=== PATIENT | female | born 1970 | race Caucasian/White ===

== ENCOUNTER 2025-03-19 11:28 | Outpatient (AMB) | payer OTHER, SELFPAY ==
--- NOTE | 2025-03-19 11:30 | MHC.PC.OV ---
Vital Signs 03/19/25 11:33 Height 5 ft 6 in Weight 171 lb 4 oz BMI 27.6 BP 117/70 Blood Pressure Location Lt brachial Position Sitting Respiration 16 Pulse 98 Pulse Source Pulse Oximeter Temp 98.3 F Temp Source Oral Pulse Oximetry (%) 98 Oxygen Delivery Method Room Air Intake Visit Reasons: establish care Health Information Administrator Required: No Accompanied by: Self / Same As Patient Allergies clarithromycin (Biaxin) Allergy (Unknown, Verified 03/19/25 11:44) Hives Medication List - Last Reconciled 03/20/25 by CARL Arita famotidine 20 mg PO BID fluoxetine (Prozac) 10 mg PO DAILY lorazepam 1 mg PO DAILY PRN Tobacco use date assessed: 03/19/25 Dental Screening Dental Screen Date: 03/19/25 Did you have a dental visit in the last 12 months?: Yes Did you have a dental problem in the last 6 months where you did not have access to dental care?: No Was dental information given to patient?: Patient has dentist HPI establish care HPI Details Previous PCP: [facility], Dr. Héctor Lo, Dr. Mathis PCP Last visit:06/2024 Last PE:same Specialist:Reports seeing a psychiatrist for 20 years now. She would like to see if there are better options for her anxiety other than the Lorazepam due to her concern about mental decline. She would like to speak to a therapist has well due to new stressful situation as it relates to her family OBGYN: Will need a referral. Reports having and pap smear last year in [place] Mammogram: 06/2024 Past medical history: GORAN, Major Depression, hypothyroidism, right thumb de quervain's tenosynovitis-will refer the patient to the hand specialist Medications: Family HX: Hypothyroidism-mother, high blood pressure mother, father cancer at 55 years old bladder cancer. Old brother dx with prostate cancer, he is smoker-he is on hormonal tx, alcoholism in other brother and sister Problem: The patient is a 54-year-old female presenting with multiple chronic conditions including anxiety, depression, and hypothyroidism, as well as for medication management and preventative care. The patient reports a history of generalized anxiety disorder and major depressive disorder, which she describes as waxing and waning. She is currently on Prozac 10 mg daily and lorazepam 1 mg as needed, approximately every other day. She expresses concern about the long-term use of lorazepam and its potential impact on her cognitive function. The patient has a history of hypothyroidism, with previous TSH levels fluctuating between 2 and 6. She has not been taking her prescribed levothyroxine and is unsure of her current thyroid status. Her mother also has hypothyroidism, suggesting a possible genetic component. The patient reports symptoms of menopause, which began at age 37, and has been advised to take antidepressants to manage symptoms. She has a fear of taking medications and is concerned about their effects on her thyroid and overall health. 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 The condition recently flared up, causing significant discomfort and functional limitations. The patient also reports a history of hypoglycemia, with consistently low blood sugar levels. She is sensitive to sugar intake, which exacerbates her symptoms. She has been diagnosed with cervical stenosis on the left side, which contributes to her chronic neck pain. She experiences constant pain in her neck and lower back, which has been managed with chiropractic and acupuncture treatments. The patient has a family history of prostate cancer in her brother and bladder cancer in her father. 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 [facility] Medical History (Updated 03/20/25 @ 00:48 by CARL Arita) Valentin neuroma De Quervain's tenosynovitis Depression Lower back pain GOARN (generalized anxiety disorder) Family History (Updated 03/20/25 @ 00:51 by CARL Arita) Brother Family hx of prostate cancer Alcoholism Mother HTN (hypertension) Hypothyroidism Father Bladder cancer Brother Alcoholism Sister Alcoholism Social History Housing: [facility] Patient Tobacco Use Status: Never used Tobacco Current occupational status: retired Questionnaire PHQ-9 Over the last 2 weeks, how often have you been bothered by any of the following problems? 1. Little interest or pleasure in doing things: several days 2. Feeling down, depressed, or hopeless: several days 3. Trouble falling or staying asleep, or sleeping too much: more than half the days 4. Feeling tired or having little energy: more than half the days 5. Poor appetite or overeating: nearly every day 6. Feeling bad about yourself - or that you are a failure or have let yourself or your family down: more than half the days 7. Trouble concentrating on things, such as reading the newspaper or watching television: nearly every day 8. Moving or speaking so slowly that other people could have noticed. Or the opposite - being so fidgety or restless that you have been moving around a lot more than usual: not at all 9. Thoughts that you would be better off or of hurting yourself in some way: not at all Total score: 14 Depression Screening Interpretation: Positive Depression Screening Done: Yes 70506 - PHQ-9 Billing: Yes Source: Developed by Drs. Keagan Jackson, Briseyda Osorio, Vince Richey and colleagues, with an educational amisha from [employer]. Thrive Questionnaire Date Thrive assessed: 03/19/25 I am a: Patient What is your living situation today?: I have a steady place to live Within the past 12 months, did the food you bought not last and you didn't have the money to get more?: Never true Within the past 12 months, did you worry whether your food would run out before you got money to buy more?: Never true Do you have trouble paying for medicines?: I choose not to answer this question Do you have trouble getting transportation to medical appointments?: No Do you have trouble paying your heating and electricity bill?: No Do you have trouble taking care of your child, family member or friend?: No Do you have trouble with day-to-day activities such as bathing, preparing meals, shopping, managing finances, etc.?: No Are you currently unemployed and looking for a job?: No Are you interested in more education?: No Please select the resources that you would like help with: None Currently or been in a relationship where the following occur: No concerns reported THRIVE Score: 0 AUDIT C Alcohol Use Questionnaire (AUDIT-C) 1. How often do you have a drink containing alcohol?: Never Total Score: 0 GORAN-7 AMB Questionnaire GORAN-7 Date GORAN - 7 assessed: 03/19/25 Feeling nervous, anxious, or on edge: 1 = Several days Not being able to stop or control worryin = Several days Worrying too much about different things: 1 = Several days Trouble relaxin = More than half the days Being so restless that it is hard to sit still: 0 = Not at all Becoming easily annoyed or irritable: 1 = Several days Feeling afraid as if something awful might happen: 1 = Several days Total GORAN-7 score (0-4 normal; 5-9 mild; 10-14 moderate; 15-21 severe): 7 Source: Developed by Drs. Keagan Jackson, Briseyda Osorio, Vince Richey and colleagues, with an educational amisha from [employer]. GORAN-7 Assessment Billing GORAN-7 Assessment Tool: GORAN-7 Assessment 77421 Review of Systems Const Details: - Psychiatric: Reports anxiety and depression, with concerns about cognitive effects of medication. - Endocrine: Reports hypothyroidism with fluctuating TSH levels, not currently taking medication. - Musculoskeletal: Reports chronic neck and lower back pain, De Quervain's tenosynovitis, and Valentin's neuroma. - Reproductive: Reports menopausal symptoms since age 37. - Metabolic: Reports hypoglycemia and sensitivity to sugar intake. Denies headache(s) Eyes Denies loss of vision ENT Denies vertigo, Denies dizziness, Denies headache(s), Reports neck pain and Denies sore throat Card Denies chest pain, Denies leg edema and Denies lightheadedness Resp Denies cough, Denies hemoptysis and Denies wheezing GI Denies abdominal pain, Denies melena, Denies constipation, Denies diarrhea and Denies vomiting Denies urinary frequency, Denies dysuria and Denies urinary urgency Musc Reports back pain, Reports arthralgias (right wrist), Denies joint swelling, Reports neck pain, Denies numbness and Denies tingling Skin/Breast Reports other (hx of valentin neuroma) Neuro Denies Abnormal speech present, Denies behavioral changes, Denies vertigo, Denies dizziness, Denies headache(s), Denies loss of vision, Denies memory loss, Denies numbness, Denies tingling and Reports other (concern for cognitive decline) Psych Reports anxiety, Denies behavioral changes, Reports depression, Denies memory loss, Denies panic attacks, Denies homicidal ideation and Denies suicidal ideation James/Lymph Denies easy bleeding and Denies easy bruising Aller/Immun Denies wheezing Physical exam (Primary Care) Vital Signs: Last Vital Signs Temp 98.3 F 03/19/25 11:33 Pulse 98 03/19/25 11:33 Resp 16 03/19/25 11:33 BP 117/70 03/19/25 11:33 Pulse Ox 98 03/19/25 11:33 Oxygen Delivery Method Room Air 03/19/25 11:33 BMI result Body Mass Index 27.6 Tobacco/Smoking Status: Tobacco use Status Tobacco use date assessed 03/19/25 03/19/25 11:37 Patient Tobacco Use Status Never used Tobacco 03/19/25 12:01 PHQ-9: PHQ-9 Score PHQ-9: Total score 14 03/19/25 11:46 Depression Screening Interpretation: Positive Thrive Assessment: Date of Thrive Assessment Date Thrive assessed 03/19/25 03/19/25 11:37 Currently or been in a relationship where the following occur: No concerns reported Const Other: - Vital signs: Oxygen saturation 98%, Pulse 66 bpm - Musculoskeletal: Pain upon palpation in the thumb area, zinging sensation in the first two fingers General: healthy appearing, no acute distress, alert and awake Nutritional Appearance: well nourished Orientation/consciousness: oriented to person, oriented to place and oriented to time HENMT Ears: TM's normal bilaterally General nose exam: Normal nasal mucous membranes and turbinates present Eyes Conjunctivae: conjunctivae normal Sclerae: sclerae normal Pupils: Equal, round and reactive pupils present Neck Neck: Yes no lymphadenopathy and Yes no JVD Thyroid: Thyroid normal Carotids: no bruits Resp Effort & Inspection: normal respiratory effort and not tachypneic Auscultation: no crackles, no rales, no rhonchi and no wheezes Cardio Rate: regular rate Rhythm: regular rhythm Heart sounds: S1 normal heart sound present, S2 normal heart sound present, no murmurs and normal S1 and S2 GI Palpation (GI): Soft to palpation and nontender Auscultation: normal bowel sounds General: Yes no CVA tenderness Back/Spine/Pelvis Back: no CVA tenderness Cervical Spine: Cervical spine tenderness Thoracic/Lumbar Spine: lumbar spinal tenderness Skin General skin exam: no rashes or lesions noted and dry skin Neuro General: oriented to person, oriented to place and oriented to time Cranial nerves: Yes Equal, round and reactive pupils present Speech: No Abnormal speech present Gait exam (Neuro): Normal gait present Motor exam (neuro): no tremor noted Extrem Right upper extremity: full ROM and wrist Details: Phalen's negative; Tinel's positive Left upper extremity: full ROM Right lower extremity: full ROM; no edema Left lower extremity: full ROM; no edema Psych Mental Status: mental status grossly normal Speech and movement: Normal speech and movement present Affect: normal affect Attitude: cooperative Thought process: Normal thought process present Coding Level of Care Code New Pt Level 4 (21458) Diagnoses GORAN (generalized anxiety disorder) F41.1 Depression, unspecified depression type F32.A Depression Type: unspecified Hypothyroidism, unspecified type E03.9 Hypothyroidism type: unspecified Chronic low back pain with sciatica, sciatica laterality unspecified, unspecified back pain laterality M54.40; G89.29 Chronicity: chronic Back pain laterality: unspecified Sciatica presence: with sciatica Sciatica laterality: sciatica laterality unspecified Neck pain M54.2 De Quervain's tenosynovitis M65.4 Additional Codes GORAN-7 Assessment Billing - GORAN-7 Assessment Tool: GORAN-7 Assessment 04062 ([id number]) PHQ-9 - 44974 - PHQ-9 Billing: Yes ([id number]) Time Spent (min) 42 Assessment & Plan Assessment & Plan (1) GORAN (generalized anxiety disorder): Code(s): F41.1 - Generalized anxiety disorder Category: Medical (2) Depression: Code(s): F32.A - Depression, unspecified Category: Medical Qualifiers: Depression Type: unspecified Qualified Code(s): F32.A - Depression, unspecified (3) Hypothyroidism: Code(s): E03.9 - Hypothyroidism, unspecified Category: Medical Qualifiers: Hypothyroidism type: unspecified Qualified Code(s): E03.9 - Hypothyroidism, unspecified (4) Lower back pain: Code(s): M54.50 - Low back pain, unspecified Category: Medical Qualifiers: Chronicity: chronic Back pain laterality: unspecified Sciatica presence: with sciatica Sciatica laterality: sciatica laterality unspecified Qualified Code(s): M54.40 - Lumbago with sciatica, unspecified side; G89.29 - Other chronic pain (5) Neck pain: Code(s): M54.2 - Cervicalgia Category: Medical (6) De Quervain's tenosynovitis: Code(s): M65.4 - Radial styloid tenosynovitis [de Quervain] Category: Medical Plan The patient will have her medications for anxiety and depression managed, with a referral to a psychiatrist to explore alternative treatments to lorazepam due to concerns about cognitive effects. She will undergo laboratory testing to assess her thyroid function, given her history of hypothyroidism and non-adherence to levothyroxine. A referral to a hand specialist will be made for her De Quervain's tenosynovitis, which has recently flared up. The patient will be referred for an x-ray of her neck and back to evaluate her chronic pain, potentially related to cervical stenosis. She will also be referred to a therapist to help manage her anxiety and depression, and to provide support for her recent family losses. Preventative care measures include scheduling follow-up appointments for routine screenings such as Pap smears and mammograms. Patient was informed and verbally consented to the use of an ambient scribe for clinic note documentation during this visit. Orders: Orders Complete Blood Count Auto Diff 03/19/25 E03.9 - Hypothyroidism, unspecified, F32.A - Depression, unspecified, F41.1 - Generalized anxiety disorder, M54.50 - Low back pain, unspecified, Z00.00 - Encounter for general adult medical examination without abnormal findings Comprehensive Manning. Panel Fast 03/19/25 E03.9 - Hypothyroidism, unspecified, F32.A - Depression, unspecified, F41.1 - Generalized anxiety disorder, M54.50 - Low back pain, unspecified, Z00.00 - Encounter for general adult medical examination without abnormal findings Lipid Panel 03/19/25 E03.9 - Hypothyroidism, unspecified, F32.A - Depression, unspecified, F41.1 - Generalized anxiety disorder, M54.50 - Low back pain, unspecified, Z00.00 - Encounter for general adult medical examination without abnormal findings Free T4 (Free Thyroxine) 03/19/25 E03.9 - Hypothyroidism, unspecified, F32.A - Depression, unspecified, F41.1 - Generalized anxiety disorder, M54.50 - Low back pain, unspecified, Z00.00 - Encounter for general adult medical examination without abnormal findings Vitamin D 25-OH Total 03/19/25 E03.9 - Hypothyroidism, unspecified, F32.A - Depression, unspecified, F41.1 - Generalized anxiety disorder, M54.50 - Low back pain, unspecified, Z00.00 - Encounter for general adult medical examination without abnormal findings Erythrocyte Sedimentation Rate 03/19/25 E03.9 - Hypothyroidism, unspecified, F32.A - Depression, unspecified, F41.1 - Generalized anxiety disorder, M54.50 - Low back pain, unspecified, Z00.00 - Encounter for general adult medical examination without abnormal findings XR cervical spine 3V 03/19/25 M54.2 - Cervicalgia MM tomosynthesis screening BI Today Z12.31 - Encounter for screening mammogram for malignant neoplasm of breast TSH reflex Free T4 03/19/25 E03.9 - Hypothyroidism, unspecified, F32.A - Depression, unspecified, F41.1 - Generalized anxiety disorder, M54.50 - Low back pain, unspecified, Z00.00 - Encounter for general adult medical examination without abnormal findings UA CC w/rflx Micro + Cult 03/19/25 E03.9 - Hypothyroidism, unspecified, F32.A - Depression, unspecified, F41.1 - Generalized anxiety disorder, M54.50 - Low back pain, unspecified, Z00.00 - Encounter for general adult medical examination without abnormal findings Uric Acid 03/19/25 E03.9 - Hypothyroidism, unspecified, F32.A - Depression, unspecified, F41.1 - Generalized anxiety disorder, M54.50 - Low back pain, unspecified, Z00.00 - Encounter for general adult medical examination without abnormal findings CRP High Sensitivity 03/19/25 E03.9 - Hypothyroidism, unspecified, F32.A - Depression, unspecified, F41.1 - Generalized anxiety disorder, M54.50 - Low back pain, unspecified, Z00.00 - Encounter for general adult medical examination without abnormal findings XR lumbar spine 4V min 03/19/25 M54.50 - Low back pain, unspecified Referrals [employer]ER Referral Z01.419 - Encounter for gynecological examination (general) (routine) without abnormal findings Psychiatry Referral F32.A - Depression, unspecified, F41.1 - Generalized anxiety disorder, F41.9 - Anxiety disorder, unspecified Orthopedics Referral M65.4 - Radial styloid tenosynovitis [de Quervain] Medications: New lorazepam 1 mg PO DAILY PRN 30 tabs 0RF anxiety famotidine 20 mg PO BID 60 tabs 3RF fluoxetine (Prozac) 10 mg PO DAILY 90 caps 2RF
[2025-03-19 11:33] VITALS: BP 117/70; PULSE 98; RESP 16; TEMP 36.8; O2SAT 98; BMI 27.6
--- OUTSIDE RECORDS SUMMARY | 2025-03-19 12:46 | XMS_ITS | Clinical Summary ---
Author Organization [facility] Address [address] [place] [id number] Care Team Providers Care Rn Security Name Role Phone Unavailable Primary Care Provider Unavailabl e Allergies Active Allergy Reactions Criticality Noted Date Comments Clarithromycin Nausea And Vomiting 12/12/2015 Paroxetine Anxiety,Other (See Comments) Low 016 tremors Medications Medication Sig Dispensed Refills Start Date End Date Status LIMBREL 500 MG CAPS Take 500 mg by mouth 2 (two) times a day. 5 11/10/2015 Active LORazepam (ATIVAN) 1 MG tablet Take 1 mg by mouth as needed. 2 11/10/[address] 500 MG EC tablet Take 1 tablet by mouth as needed. 0 09/26/2015 Active Cholecalciferol (VITAMIN D-3 PO) Take 1 tablet by mouth daily. 0 Active NIACIN PO Take 1 tablet by mouth daily. 0 Active Ascorbic Acid (VITAMIN C PO) Take 1 tablet by mouth daily. 0 Active Multiple Vitamins-Minerals (MULTIVITAMIN ADULT PO) Take 1 tablet by mouth daily. 0 Active Conner-3 Fatty Acids (FISH OIL PO) Take 1,600 mg by mouth daily. 0 Active Cyanocobalamin (VITAMIN B 12 PO) Take 1 tablet by mouth daily. 0 Active fluticasone (FLONASE) 50 MCG/ACT nasal spray spray/apply 2 sprays in each nostril daily as needed for rhinitis. 0 Active UNABLE TO FIND Take 1 tablet by mouth 2 (two) times a day. Super Bio Curcumin 0 Active duloxetine (CYMBALTA) DR capsule 30 mg Take 1 capsule (30 mg total) by mouth daily. 30 capsule 0 12/18/2015 Active Family History Medical History Relation Name Comments Hypertension Father Hypertension Mother Relation Name Status Comments Father Alive Mother Alive Social History Tobacco Use Types Packs/Day Years Used Date Smoking Tobacco: Never Smokeless Tobacco: Never Alcohol Use Standard Drinks/Week Comments Yes 0 (1 standard drink = 0.6 oz pur e alcohol) rare Sex and Gender Information Value Date Recorded Sex Assigned at Not on file Gender Identity Not on file Sexual Orientation Not on file Last Filed Vital Signs Vital Sign Reading Time Taken Comments Blood Pressure - - Pulse - - Temperature - - Respiratory Rate - - Oxygen Saturation - - Inhaled Oxygen Concentration - - Weight 64.9 kg (143 lb) 12/12/2015 10:52 AM EDT Height 170.2 cm (5' 7 ) 12/12/2015 10:52 AM EDT Body Mass Index 22.4 12/12/2015 10:52 AM EDT Plan of Treatment Health Maintenance Due Date Last Done Comments Hepatitis B Vaccines (1 of 3 - 3-dose series) 1969 Hepatitis C Screening 1969 COVID-19 Vaccine (#1) 1969 Depression Screening 1981 Preventative Health Evaluation 1987 Cervical Cancer Screening (P ap Smear) 1990 Colon Cancer Screening (Colonoscopy) 2014 Breast Cancer Screening (Mammogram) 2019 Shingrix-Zoster Vaccine (1 of 2) 2019 DTap / Tdap / Td (2 - Td or Tdap) 06/01/2022 012 Influenza Vaccine (#1) 2025 Pneumococcal Vaccine Aged Out No long er eligible based on patient's age to complete this topic RSV Ped < 20 months Aged Out No longe r eligible based on patient's age to complete this topic
--- OUTSIDE RECORDS SUMMARY | 2025-03-19 12:46 | XMS_ITS | Patient Health Record ---
Author Organization [facility] Address [address] [place] [address] Care Team Providers Care Music Department Chair Name Role Phone [facility] Primary Care Provider Unavailable Amilcar Booth Unavailable [phone] Allergies No Known Allergies Reason For Referral No Information Medications Medication SIG (Take, Route, Frequency, Duration) Notes Start Date End Date Status Levothyroxine Sodium 50 MCG 1 tablet in the morning on an empty stomach Orally Once a day; Duration: 30 day(s) Active ZyrTEC Allergy 10 MG 1 tablet Orally Onc e a day; Duration: 30 day(s) Active ProAir HFA 108 (90 Base) MCG/ACT 1 puff as needed Inhalation every 4 hrs Active Naproxen 500 MG TAKE ONE TABLET BY M OUTH TWICE A DAY WITH FOOD Oral; Duration: 90 Active Zoloft 100 MG 1 tablet Orally Once a day; Duration: 30 day(s) Active LORazepam 1 MG 1 tablet at bedtime as needed Orally Once a day Active Gabapentin 300 MG 1 tablet Orally thre e times a day Active Diclofenac Sodium 2.5 % as directed Exte rnally Four times a day 10/29/2020 Active Social History Tobacco Use: Social History Observation Description Date Details (start date - stop date) Never Smoker NA - NA Tobacco Use: Question Answer Notes Are you a: never smoker Additional Findings: Tobacco Non-User Current no n-smoker Alcohol Screening: Question Answer Notes Did you have a drink containing alcohol in the p ast year? No Points 0 Interpretation Negative Smoking Question Answer Notes Are you a: former smoker How long has it been since you last smoked? > 10 years Problems Problem Type SNOMED Code ICD Code Onset Dates Problem Status W/U Status Risk Notes Problem Spinal stenosis in cervical region (03862647) Spinal stenosis, cervical region (M48.02) Active confirmed Problem Lumbar radiculopathy (633037922) Radiculopathy, lumbar region (M54.16) Active confirmed Problem Acute pain of right knee (M25.561) Active confirmed Problem Carpal tunnel syndrome of left wrist (949007142848807) Carpal tunnel syndrome of left wrist (G56.02) Active confirmed Problem Radial styloid tenosynovitis (79606466) 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) Active confirmed Problem Other tear of medial meniscus of right knee as current injury, initial encounter (S83.241A) Active confirmed Problem Entrapment of right ulnar nerve (635449140629323) Entrapment of right ulnar nerve (G56.21) Active confirmed Plan Of Treatment Pending Test Test Name Order Date DAVEY- C-spine Interlaminar CPT 96702 02/27 MRI LUMBAR SPINE WO CONTRAST 03/25/2021 Physical Therapy 1-2x a week x 6 weeks 0 12/16/2021 Insurance Providers Payer Name Payer Address Payer Phone Subscriber Number Group Number Insured Name Patient Relationship to Insured Coverage Start Date Coverage End Date [place] [facility] CTY [address] [facility] 4TH [place] [address] [id number] Regina Khan Self - patient is the insured Medical (General) History Medical History History ICD Code PTSD depression anxiety Panic attacks mood disorder fibromyalgia degenerative disc disease back pain neck pain sciatica asthma hashimotos thyroiditis Arthritis carpal tunnel Surgical History Surgery Date(Month/Year) none Hospitalization History Reason Date(Month/Year) none
--- OUTSIDE RECORDS SUMMARY | 2025-03-19 12:46 | XMS_ITS | Clinical Summary ---
Author Organization [facility] Address [address] [place] [address] Care Team Providers Care Lace And Textiles Restorer Name Role Phone Gary Das MD Primary Care Provider [phone] Surgical History Surgery Date Site/Laterality Comments ESOPHAGOGASTRODUODENOSCOPY 02/18/09 PROCEDURE: GA EGD TRANSORAL BIOPSY SINGLE/MULTIPLE; COMMENT: Nl esophagus-biopsy:normal, Antral gastritis and 2 small polyps-biopsy:reactive gastropathy and intestinal metaplasia. Nl sb-biopsy:Nl OTHER SURGICAL HISTORY 12/14/2016 PROCEDURE: [place] EXC BRANCHIAL CLEFT CYST CONFINED SKN&SUBQ TIS; COMMENT: Dr. 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 Disorder of thyroid DX:Disorder of thyroid Esophageal reflux DX:Esophageal reflux Acalculous cholecystitis 05/22/2018 DX:Acal culous cholecystitis Dysfunctional gallbladder 05/22/2018 DX:Dys functional gallbladder Family History Medical History Relation Name Comments No Known Problems Aunt Cataracts Brother Other: Other Brother retinal detachm ent Basal cell carcinoma Father Glaucoma Father Other: bladder cancer Father No Known Problems Maternal Grandfather No Known Problems Maternal Grandmother Glaucoma Mother Other: borderline diabetes Mother h ypertension Thyroid disease Mother No Known Problems Other No Known Problems Paternal Grandfather No Known Problems Paternal Grandmother No Known Problems Sister No Known Problems Uncle Blindness Neg Hx Breast cancer Neg Hx Colon cancer Neg Hx Macular degeneration Neg Hx Ovarian cancer Neg Hx Strabismus Neg Hx Relation Name Status Comments Aunt Brother Father Alive bladder cancer Maternal Grandfather Maternal Grandmother Mother Alive borderline diab etes, htn, Other Paternal Grandfather Paternal Grandmother Sister Uncle Social History Tobacco Use Types Packs/Day Years Used Date Smoking Tobacco: Former Cigarettes 0.5 4.3 0 1984 - 08/29/1988 Smokeless Tobacco: Never Alcohol Use Standard Drinks/Week Comments Yes 0 (1 standard drink = 0.6 oz pur e alcohol) Comments Unknown Sex and Gender Information Value Date Recorded Sex Assigned at Not on file Legal Sex Female 10:22 PM EST Gender Identity Not on file Sexual Orientation Not on file Obstetrics History Plan of Treatment Health Maintenance Due Date Last Done Comments Hepatitis B Vaccines (1 of 3 - 19+ 3-dose series) 1988 Cervical Cancer Screening: P ap Smear 1990 Pneumococcal Vaccine: 50+ Years (1 of 1 - PCV) 2019 Zoster Vaccines (1 of 2) 2019 Breast Cancer Screening 03/23/2021 03/23/2019 DTaP,Tdap,and Td Vaccines (2 - Td or Tdap) 06/01/2022 06/01/2012 COVID-19 Vaccine (1 - 2023-2 5 season) 2024 Depression Screening 08/29/2024 Influenza Vaccine (#1) 2025 6, 07/29/2007, 07/24/2006 HIB Vaccines Aged Out No longer eligi ble based on patient's age to complete this topic HPV Vaccines Aged Out No longer eligi ble based on patient's age to complete this topic Hepatitis A Vaccines Aged Out No long er eligible based on patient's age to complete this topic IPV Vaccines Aged Out No longer eligi ble based on patient's age to complete this topic MMR Vaccines Aged Out No longer eligi ble based on patient's age to complete this topic Meningococcal ACWY Vaccine Aged Out N o longer eligible based on patient's age to complete this topic Meningococcal B Vaccine Aged Out No l onger eligible based on patient's age to complete this topic RSV Immunization Patients Under 20 months Aged Out No longer eligible b ased on patient's age to complete this topic Varicella Vaccines Aged Out No longer eligible based on patient's age to complete this topic Procedures Procedure Name Priority Date/Time Associated Diagnosis Comments SCR MAMMO BI INCL CAD Routine 03/23/2019 1:54 PM EDT Encounter for gynecological examination (general) (routine) without abnormal findings Encounter for screening mammogram for malignant neoplasm of breast from Last 3 Months or Most Recently Relevant to Health Maintenance Results * SCR MAMMO BI INCL CAD (03/23/2019 1:54 PM EDT) Anatomical Region Laterality Modality Radiographic Alisia ging 01/31/2019 4:22 PM EDT Narrative 03/24/2019 3:35 PM EDT This is a summary report. The complete report is available in the patient's medical record. If you cannot access the medical record, please contact the sending organization for a detailed fax or copy. Full field digital screening mammography, reviewed with CAD and compared to previous. The breast tissue is heterogeneously dense, limiting sensitivity. No suspicious mass, architectural distortion or suspicious calcifications are identified. IMPRESSION: : Dense breast tissue, limiting the sensitivity of mammography. No mammographic evidence of malignancy. BIRADS 1-Negative; N. 5 year breast cancer risk assessment 0.9 % Lifetime breast cancer risk assessment 9.2 % Breast cancer risk category Low (<15%) Procedure Note Johnathon Huang - 08/17/2022 This is a summary report. The complete report is available in thepatient's medical record. If you cannot access the medical record, pleasecontact the sending organization for a detailed fax or copy. Full field digital screening mammography, reviewed with CAD and comparedto previous. The breast tissue is heterogeneously dense, limitingsensitivity. No suspicious mass, architectural distortion or suspiciouscalcifications are identified. IMPRESSION: : Dense breast tissue, limiting the sensitivity of mammography. Nomammographic evidence of malignancy. BIRADS 1-Negative; N. 5 year breast cancer risk assessment 0.9 % Lifetime breast cancer risk assessment 9.2 % Breast cancer risk category Low (<15%) Maddison Escalera DO IMG XR PROCEDURES Final Resul t from Last 3 Months or Most Recently Relevant to Health Maintenance Care Teams Lace And Textiles Restorer Relationship Specialty Start Date End Date Gary Das MD [address] [place] [address] PCP - General Internal Medicine 07/02/11
== END 2025-03-19 12:25 | disposition home or self-care (01) ==
LOC: HO.HMCH 11:29
DX: F41.1 Generalized anxiety disorder (principal); F32.A Depression, unspecified; E03.9 Hypothyroidism, unspecified; M54.40 Lumbago with sciatica, unspecified side; G89.29 Other chronic pain; M54.2 Cervicalgia; M65.4 Radial styloid tenosynovitis [de Quervain]

== ENCOUNTER → 2025-03-19 11:28 | Outpatient (BNVA) | payer OTHER, SELFPAY | DX: F41.1 Generalized anxiety disorder (principal); E03.9 Hypothyroidism, unspecified; M65.4 Radial styloid tenosynovitis [de Quervain]; F32.A Depression, unspecified; M54.40 Lumbago with sciatica, unspecified side; G89.29 Other chronic pain; M54.2 Cervicalgia | CPT/HCPCS: 96127 ==

== ENCOUNTER 2025-04-15 12:28 | Outpatient (REF) | payer MEDICARE, SELFPAY ==
--- NOTE | ~2025-04-15 | XR_ITS ---
EXAMINATION: XR LUMBAR SPINE 4 OR MORE VIEWS HISTORY: M54.50 - Low back pain, unspecified COMPARISON: There are no prior studies for comparison. FINDINGS: AP, lateral, bilateral oblique, and coned down views of the lumbar spine are submitted. Osseous mineralization is normal. Five nonrib-bearing lumbar vertebral bodies are identified, maintaining normal height without evidence of fracture or spondylolisthesis. There is slight rightward curvature which may be positional in nature. The intervertebral disc spaces are preserved. The posterior elements are intact. There is no spondylolysis. The visualized paraspinal soft tissues are unremarkable. XR/XR lumbar spine 4V min IMPRESSION: Slight rightward curvature which may be positional in nature. Otherwise unremarkable examination of the lumbar spine. Electronically signed by: Keagan Harvey MD 04/15/2025 01:20 PM EDT
--- NOTE | ~2025-04-15 | XR_ITS ---
EXAMINATION: XR CERVICAL SPINE CLINICAL INFORMATION: M54.2 - Cervicalgia COMPARISON: None available. TECHNIQUE: 3 views of the cervical spine were obtained. FINDINGS: No scoliosis. Straightening of the normal lordosis. No fracture, compression deformity, or suspicious bone lesion. No malalignment or subluxation. There is mild to moderate disc degeneration spanning C3-C7. Mild associated facet degeneration. There is no prevertebral soft tissue abnormality. The lung apices are clear. XR/XR cervical spine 3V IMPRESSION: 1. No acute abnormality of the cervical spine. 2. Mild multilevel cervical spondylosis. Electronically signed by: Jose Carlos Mi MD 04/15/2025 01:13 PM EDT
--- OUTSIDE RECORDS SUMMARY | 2025-04-15 13:30 | XMS_ITS ---
Author Name [facility] Organization Unknown Encounters Encounter Type Encounter Reason Primary Diagnosis Location Date Ambulatory [facility] 06/08/2024 Care Team Organization Name Specialty Phone Email Start Date End Da [facility] 2024
--- OUTSIDE RECORDS SUMMARY | 2025-04-15 13:31 | XMS_ITS | Patient Health Record ---
Author Organization [facility] Address [address] [place] [address] Care Team Providers Care Slider Assembler Name Role Phone [facility] Primary Care Provider Unavailable Amilcar Booth Unavailable [phone] Allergies No Known Allergies Reason For Referral [...] Notes Problem Spinal stenosis in cervical region (78198725) Spinal stenosis, cervical region (M48.02) Active confirmed Problem Lumbar radiculopathy (425141464) Radiculopathy, lumbar region (M54.16) Active confirmed Problem Acute pain of right knee (M25.561) Active confirmed Problem Carpal tunnel syndrome of left wrist (230211480631329) Carpal tunnel syndrome of left wrist (G56.02) Active confirmed Problem Radial styloid tenosynovitis (05303417) 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) Active confirmed Problem Other tear of medial meniscus of right knee as current injury, initial encounter (S83.241A) Active confirmed Problem Entrapment of right ulnar nerve (796570334988816) Entrapment of right ulnar nerve (G56.21) Active confirmed Plan Of Treatment Pending Test Test Name Order Date DAVEY- C-spine Interlaminar CPT 65734 02/27 MRI LUMBAR SPINE WO CONTRAST 03/25/2021 Physical Therapy 1-2x a week x 6 weeks 0 12/16/2021 Insurance Providers Payer Name Payer Address Payer Phone Subscriber Number Group Number Insured Name Patient Relationship to Insured Coverage Start Date Coverage End Date [place] [facility] CTY [address] [facility] 4TH FLOOR [place] [address] [id number] Regina Khan Self - patient is the insured Medical (General) History Medical History History ICD Code PTSD depression anxiety Panic attacks mood disorder fibromyalgia degenerative disc disease back pain neck pain sciatica asthma hashimotos thyroiditis Arthritis carpal tunnel Surgical History Surgery Date(Month/Year) none Hospitalization History Reason Date(Month/Year) none
--- OUTSIDE RECORDS SUMMARY | 2025-04-15 13:31 | XMS_ITS | Clinical Summary ---
Author Organization [facility] Address [address] [place] [address] Care Team Providers Care General Merchandise Salesperson Name Role Phone Unavailable Primary Care Provider [...] 1 tablet by mouth daily. 0 Active [place]-3 Fatty Acids (FISH OIL PO) Take 1,600 [...]
--- OUTSIDE RECORDS SUMMARY | 2025-04-15 13:31 | XMS_ITS | Clinical Summary ---
Author Organization [facility] Address [address] [place] [address] Care Team Providers Care Aerodynamicist Name Role Phone Gary Das MD Primary Care Provider [phone] Surgical History Surgery Date Site/Laterality Comments ESOPHAGOGASTRODUODENOSCOPY 02/18/09 PROCEDURE: IN EGD TRANSORAL BIOPSY SINGLE/MULTIPLE; COMMENT: Nl esophagus-biopsy:normal, Antral gastritis and 2 small polyps-biopsy:reactive gastropathy and intestinal metaplasia. Nl sb-biopsy:Nl OTHER SURGICAL HISTORY 12/14/2016 PROCEDURE: IN EXC BRANCHIAL CLEFT CYST CONFINED SKN&SUBQ TIS; COMMENT: Dr. Kiersten Angela; left neck inclusion cyst 0.6 cm EYE SURGERY PROCEDURE: HISTORICAL EYE SURGERY; COMMENT: lasik bilaterally, left lattis surgery OTHER SURGICAL HISTORY PROCEDURE: IN RADIAL KERATOTOMY; COMMENT: left eye Medical History [...] Recently Relevant to Health Maintenance Care Teams Aerodynamicist Relationship Specialty Start Date End Date Gary Das MD [address] [place] [address] PCP - General Internal Medicine 07/02/11
== END 2025-04-15 12:29 | disposition home or self-care (01) ==
LOC: HO.XRAY 12:28
DX: M54.2 Cervicalgia (principal); M54.50 Low back pain, unspecified
CPT/HCPCS: 72040; 72110

== ENCOUNTER → 2025-04-15 12:33 | Outpatient (BNV) | payer MEDICARE, SELFPAY | PROVIDERS: Visit Provider Radiology Diagnostic Radiology | DX: M54.50 Low back pain, unspecified (principal); M47.812 Spondylosis without myelopathy or radiculopathy, cervical region | CPT/HCPCS: 72040; 72110 ==

== ENCOUNTER 2025-04-18 09:22 | Outpatient (AMB) | payer OTHER, SELFPAY ==
--- NOTE | 2025-04-18 09:36 | MHC.OFFVIS ---
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 Per PCP, patient has tried injections, most recent one done 3087-4852 in [place]. She continues using a comfort cool bracea. Patient states injections do not help however the brace helps her while doing repetitive motions. She has also tried Ibuprofen but discontinued it due to upset stomach. Denies previous injuries or surgeries on the right hand. 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 Per PCP, patient has tried injections, most recent one done 6877-6527 in [place]. Patient states she has had many injections, but none have provided her with relief. She continues using a comfort cool bracea. Patient states injections do not help however the brace helps her while doing repetitive motions. She has also tried Ibuprofen but discontinued it due to upset stomach. Denies previous injuries or surgeries on the right hand. [facility] Medical History (Updated 03/20/25 @ 00:48 by CARL Arita) Cesar neuroma De Quervain's tenosynovitis Depression Lower back pain GORAN (generalized anxiety disorder) Family History (Updated 03/20/25 @ 00:51 by CARL Arita) Brother Family hx of prostate cancer Alcoholism Mother HTN (hypertension) Hypothyroidism Father Bladder cancer Brother Alcoholism Sister Alcoholism Social History Housing: [facility] Patient Tobacco Use Status: Never used Tobacco Current occupational status: retired Review of Systems Const All systems reviewed & are unremarkable except as noted in HPI and below Physical Exam Vital Signs: BMI result Body Mass Index 27.6 Extrem Other: Patient is alert, oriented, and in no acute distress. Neuro: Normal sensation of the tips of all digits of the right hand at this time Vascular: Cap refill brisk Pain: Buub-mz-ndydnrew tenderness to palpation of the right radial styloid Positive Ria on the right No tenderness to palpation of MCP or IP joints of right thumb No pain or laxity with varus and valgus testing of the MCP joint of the right thumb ROM: Patient is able to make a closed fist and extend all digits of the right hand fully and without difficulty Skin: No lacerations or abrasions. General: No ecchymosis, erythema, or evidence of infection. Psych: Appears grossly normal Affect normal Attitude cooperative Assessment & Plan Assessment & Plan (1) De Quervain's tenosynovitis: Code(s): M65.4 - Radial styloid tenosynovitis [de Quervain] Category: Medical Plan 1. Right de Quervain tenosynovitis Patient is educated about this condition Patient is educated about the treatment options available, namely occupational therapy, injections, or right 1st dorsal compartment release Given the patient has already received multiple injections with no relief, she would like to proceed with ALF release at this time I educated the patient about the condition. I discussed both operative and nonoperative treatment options. The patient would like to proceed with surgery. The risks and benefits of operative treatment were discussed with the patient and the patient wishes to proceed with surgery. These risks include, but are not limited to, risk of damage to blood vessels, nerves, tendons, infection, recurrence, incomplete relief of preoperative symptoms, persistent pain, possible need for further surgery, and the risks associated with regional blocks and/or anesthesia. Plan is to take the patient to the operating room at some point in the next few weeks for the following procedures: 1. Right 1st dorsal compartment release under local All of the preoperative paperwork including the consent was discussed today. All of the patient's questions were answered in the clinic today. The patient understands that they will be in contact with our cover stitch machine operator to discuss scheduling their procedure. Patient denies diabetes, blood thinners, asthma, heart issues, lung issues, kidney issues, or current smoking. Coding Level of Care Code New Pt Level 4 (48084) Diagnoses De Quervain's tenosynovitis M65.4
[2025-04-18 09:41] VITALS: BMI 27.6
--- OUTSIDE RECORDS SUMMARY | 2025-04-18 10:29 | XMS_ITS | Patient Health Record ---
Author Organization [facility] Address [address] [place] [address] Care Team Providers Care Aerial Planting And Cultivation Manager Name Role Phone [facility] Primary Care Provider Unavailable Amilcar Booth Unavailable [phone] Allergies No Known Allergies Reason For Referral [...] Notes Problem Spinal stenosis in cervical region (32903043) Spinal stenosis, cervical region (M48.02) Active confirmed Problem Lumbar radiculopathy (149234102) Radiculopathy, lumbar region (M54.16) Active confirmed Problem Acute pain of right knee (M25.561) Active confirmed Problem Carpal tunnel syndrome of left wrist (520009973837462) Carpal tunnel syndrome of left wrist (G56.02) Active confirmed Problem Radial styloid tenosynovitis (03083664) 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) Active confirmed Problem Other tear of medial meniscus of right knee as current injury, initial encounter (S83.241A) Active confirmed Problem Entrapment of right ulnar nerve (456882921197127) Entrapment of right ulnar nerve (G56.21) Active confirmed Plan Of Treatment Pending Test Test Name Order Date DAVEY- C-spine Interlaminar CPT 54484 02/27 MRI LUMBAR SPINE WO CONTRAST 03/25/2021 Physical Therapy 1-2x a week x 6 weeks 0 12/16/2021 Insurance Providers Payer Name Payer Address Payer Phone Subscriber Number Group Number Insured Name Patient Relationship to Insured Coverage Start Date Coverage End Date [place] [facility] CTY [address] [facility] 4TH F[place] [address] [id number] Regina Khan Self - patient is the insured Medical (General) History Medical History History ICD Code PTSD depression anxiety Panic attacks mood disorder fibromyalgia degenerative disc disease back pain neck pain sciatica asthma hashimotos thyroiditis Arthritis carpal tunnel Surgical History Surgery Date(Month/Year) none Hospitalization History Reason Date(Month/Year) none
--- OUTSIDE RECORDS SUMMARY | 2025-04-18 10:29 | XMS_ITS | Clinical Summary ---
Author Organization [facility] Address [address] [place] [address] Care Team Providers Care Bolt Maker Name Role Phone Gary aDs MD Primary Care Provider [phone] Surgical History Surgery Date Site/Laterality Comments ESOPHAGOGASTRODUODENOSCOPY 02/18/09 PROCEDURE: [place] EGD TRANSORAL BIOPSY SINGLE/MULTIPLE; COMMENT: Nl esophagus-biopsy:normal, Antral gastritis and 2 small polyps-biopsy:reactive gastropathy and intestinal metaplasia. Nl sb-biopsy:Nl OTHER SURGICAL HISTORY 12/14/2016 PROCEDURE: MN EXC BRANCHIAL CLEFT CYST CONFINED SKN&SUBQ TIS; COMMENT: Dr. Kiersten Angela; left neck inclusion cyst 0.6 cm EYE SURGERY PROCEDURE: HISTORICAL EYE SURGERY; COMMENT: lasik bilaterally, left lattis surgery OTHER SURGICAL HISTORY PROCEDURE: MN RADIAL KERATOTOMY; COMMENT: left eye Medical History [...] Recently Relevant to Health Maintenance Care Teams Bolt Maker Relationship Specialty Start Date End Date Gary Das MD [address] [place] [address] PCP - General Internal Medicine 07/02/11
--- OUTSIDE RECORDS SUMMARY | 2025-04-18 10:29 | XMS_ITS | Clinical Summary ---
Author Organization [facility] Address [address] [place] [address] Care Team Providers Care Terra Cotta Mason Name Role Phone Unavailable Primary Care Provider [...] 1 tablet by mouth daily. 0 Active [place]-3 Fatty Acids (FISH OIL PO) Take 1,600 [...]
== END 2025-04-18 10:26 | disposition home or self-care (01) ==
LOC: HO.HOS 09:23
DX: M65.4 Radial styloid tenosynovitis [de Quervain] (principal)
CPT/HCPCS: 99204

== ENCOUNTER 2025-04-22 08:01 | Outpatient (REF) | payer OTHER, SELFPAY ==
--- OUTSIDE RECORDS SUMMARY | 2025-04-22 08:04 | XMS_ITS | Clinical Summary ---
Author Organization [facility] Address [address] [place] [address] Care Team Providers Care Solidworks Drafter Name Role Phone Unavailable Primary Care Provider [...] 1 tablet by mouth daily. 0 Active [place]-3 Fatty Acids (FISH OIL PO) Take 1,600 [...]
--- OUTSIDE RECORDS SUMMARY | 2025-04-22 08:04 | XMS_ITS | Patient Health Record ---
Author Organization [facility] Address [address] [place] [address] Care Team Providers Care Card Cutter Helper Name Role Phone [facility] Primary Care Provider Unavailable Amilcar Booth Unavailable [phone] Allergies No Known Allergies Reason For Referral [...] Notes Problem Spinal stenosis in cervical region (67031287) Spinal stenosis, cervical region (M48.02) Active confirmed Problem Lumbar radiculopathy (976099574) Radiculopathy, lumbar region (M54.16) Active confirmed Problem Acute pain of right knee (M25.561) Active confirmed Problem Carpal tunnel syndrome of left wrist (177650646624794) Carpal tunnel syndrome of left wrist (G56.02) Active confirmed Problem Radial styloid tenosynovitis (24913709) 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) Active confirmed Problem Other tear of medial meniscus of right knee as current injury, initial encounter (S83.241A) Active confirmed Problem Entrapment of right ulnar nerve (755553798495039) Entrapment of right ulnar nerve (G56.21) Active confirmed Plan Of Treatment Pending Test Test Name Order Date DAVEY- C-spine Interlaminar CPT 21632 02/27 MRI LUMBAR SPINE WO CONTRAST 03/25/2021 Physical Therapy 1-2x a week x 6 weeks 0 12/16/2021 Insurance Providers Payer Name Payer Address Payer Phone Subscriber Number Group Number Insured Name Patient Relationship to Insured Coverage Start Date Coverage End Date [place] [facility] CTY [address] [facility] [facility] [place] 4TH FLOOR [place] [address] [id number] Regina Khan Self - patient is the insured Medical (General) History Medical History History ICD Code PTSD depression anxiety Panic attacks mood disorder fibromyalgia degenerative disc disease back pain neck pain sciatica asthma hashimotos thyroiditis Arthritis carpal tunnel Surgical History Surgery Date(Month/Year) none Hospitalization History Reason Date(Month/Year) none
--- OUTSIDE RECORDS SUMMARY | 2025-04-22 08:04 | XMS_ITS | Clinical Summary ---
Author Organization [facility] Address [address] [place] [address] Care Team Providers Care Post Doctoral Fellow Name Role Phone Gary Das MD Primary Care Provider [phone] Surgical History Surgery Date Site/Laterality Comments ESOPHAGOGASTRODUODENOSCOPY 02/18/09 PROCEDURE: SD EGD TRANSORAL BIOPSY SINGLE/MULTIPLE; COMMENT: Nl esophagus-biopsy:normal, Antral gastritis and 2 small polyps-biopsy:reactive gastropathy and intestinal metaplasia. Nl sb-biopsy:Nl OTHER SURGICAL HISTORY 12/14/2016 PROCEDURE: SD EXC BRANCHIAL CLEFT CYST CONFINED SKN&SUBQ TIS; COMMENT: Dr. Kiersten Angela; left neck inclusion cyst 0.6 cm EYE SURGERY PROCEDURE: HISTORICAL EYE SURGERY; COMMENT: lasik bilaterally, left lattis surgery OTHER SURGICAL HISTORY PROCEDURE: SD RADIAL KERATOTOMY; COMMENT: left eye Medical History [...] Recently Relevant to Health Maintenance Care Teams Post Doctoral Fellow Relationship Specialty Start Date End Date Gary Das MD [address] [place] [address] PCP - General Internal Medicine 07/02/11
[2025-04-22 08:16] LABS: MANUAL DIFF FLAG NO
[2025-04-22 08:29] LABS: Hematocrit 39.0 % (37.0-47.0); Hemoglobin 13.8 g/dl (12.0-16.0); Imm Gran Abs Auto 0.01 X10*3/uL (0.00-0.03); Imm Gran Pct Auto 0.2 % (0.0-0.4); Lymphocytes Absolute Auto 1.4 X10*3/uL (1.2-4.9); Mean Corpuscular HGB Conc 35.4 g/dl (31.0-35.0); Mean Corpuscular Hemoglobin 31.7 pg (27.0-33.0); Mean Corpuscular Volume 89.7 fL (80.0-98.0); NRBC Abs Auto 0.000 X10*3/uL (0.0-0.012); NRBC Pct Auto 0.0 /100WBC (0.0-0.2); Platelet Count 224 X10*3/uL (160-400); Red Blood Count 4.35 X10*6/uL (4.20-5.50); White Blood Count 4.7 X10*3/uL (4.8-10.8)
[2025-04-22 08:52] LABS: Appearance Urine Clear; Glucose Urine UA Negative (Negative); PH 6.0 (5.0-9.0); Specific Gravity - Urine 1.020 (1.005-1.025); UMIC TRIGGER UACC YES
[2025-04-22 09:03] LABS: Alanine Aminotransferase 25 U/L (0-31); Albumin Level 4.6 g/dL (3.5-5.0); Alkaline Phosphatase 66 U/L (39-117); Anion Gap 11 (12-20); Aspartate Amino Transferase 27 U/L (5-31); Blood Urea Nitrogen 18 mg/dL (9-16); Calcium 9.4 mg/dL (8.4-10.2); Carbon Dioxide 29 mmol/L (22-29); Chloride 105 mmol/L (96-108); Cholesterol 196 mg/dL (<200); Estimated Glomerular Filt Rate > 60; HDL Cholesterol 56 mg/dL (>40); Potassium 4.8 mmol/L (3.3-5.1); Sodium 140 mmol/L (135-145); Total Protein 7.1 g/dL (6.5-8.0); Triglycerides 115 mg/dL (<150); Uric Acid 4.0 mg/dL (2.4-5.7)
[2025-04-22 09:12] LABS: Free T4 (Free Thyroxine) 0.86 ng/dL (0.71-1.85)
[2025-04-22 09:18] LABS: UACC Culture Trigger YES
== END 2025-04-22 08:02 | disposition home or self-care (01) ==
LOC: HO.LAB 08:01
DX: Z00.00 Encounter for general adult medical examination without abnormal findings (principal); F41.1 Generalized anxiety disorder; E03.9 Hypothyroidism, unspecified; M54.50 Low back pain, unspecified; F32.A Depression, unspecified
CPT/HCPCS: 36415; 80053; 80061; 81001; 82306; 84439; 84443; 84550; 85025; 85652; 86141; 87086

== ENCOUNTER 2025-04-30 13:16 | Outpatient (AMB) | payer OTHER, SELFPAY ==
[2025-04-30 13:18] VITALS: BP 110/62; PULSE 72; RESP 18; TEMP 36.4; O2SAT 98; BMI 27.9
--- NOTE | 2025-04-30 13:18 | A.OFFPC_ITS ---
Vital Signs 04/30/25 13:18 Height 5 ft 6 in Weight 173 lb BMI 27.9 BP 110/62 Blood Pressure Location Lt brachial Position Sitting Respiration 18 Pulse 72 Pulse Source Pulse Oximeter Temp 97.5 F Temp Source Temporal Artery Scan Pulse Oximetry (%) 98 Oxygen Delivery Method Room Air Intake Visit Reasons: annual physical/lab review Business Services Vice President Required: No Accompanied by: Self / Same As Patient Allergies clarithromycin (Biaxin) Allergy (Unknown, Verified 04/30/25 21:52) Hives omeprazole Adverse Reaction (Unknown, Verified 04/30/25 21:52) malaise Medication List - Last Reconciled 04/30/25 by CARL Arita famotidine 20 mg PO BID fluoxetine (Prozac) 10 mg PO DAILY ibuprofen 800 mg PO Q8H PRN levothyroxine (Levoxyl) 25 mcg PO DAILY lorazepam 1 mg PO DAILY PRN Tobacco use date assessed: 04/30/25 Dental Screening Dental Screen Date: 03/19/25 Did you have a dental visit in the last 12 months?: Yes Did you have a dental problem in the last 6 months where you did not have access to dental care?: No Was dental information given to patient?: Patient has dentist HPI annual physical/lab review HPI Details Annual physical Dentist:up to date Eye: up to date Snellen: Right: Left: Corrected vision: lasik surgery 25 years ago STI screening: Colonoscopy: colonscopy needs ordered Pap Smer: referred to obgyn PHQ-9: Flu: up to date COVID:x3 Tdap: Reports that she does not remember but wants to hold off on getting this done today Diet:regular Exercise: walking about 3 miles a day. The patient is a 54-year-old female presenting with fatigue, neck pain, and concerns about thyroid function. The patient reports a history of subclinical hypothyroidism, characterized by elevated thyroid-stimulating hormone (TSH) levels with low-normal thyroxine (T4) levels, indicating low thyroid function. She experiences significant fatigue, which may be related to her thyroid condition, and is considering a trial of low-dose thyroid medication to alleviate symptoms. There is a family history of thyroid issues, as her mother also has a thyroid condition. The patient has cervical spondylosis, with mild multilevel involvement from C3 to C7, causing chronic neck pain. She experiences cervical headaches and has been advised to manage the condition conservatively with stretching and physical therapy. The patient is in menopause, having not had a menstrual period for four years, and reports symptoms such as fatigue and occasional warm flashes. She takes vitamin E and Prozac, which helps manage her symptoms, although Prozac has increased her sweating. The patient has hyperlipidemia, with an LDL cholesterol level of 117 mg/dL, and has been advised to make dietary modifications to manage her cholesterol levels. She is concerned about her cholesterol levels and is considering reducing high-cholesterol foods such as ice cream and bread. The patient reports chronic sinusitis, with symptoms including sinus headaches and nasal congestion. She has discontinued Zyrtec due to its drying effects and is using saline for symptom relief. The patient has a history of anxiety and depression, currently managed with Prozac, which she self-adjusted to 20 mg due to insufficient relief at 10 mg. She is considering switching to duloxetine, which may also help with her arthritis symptoms, but is advised to consult a psychiatrist for medication management. The patient has irritable bowel syndrome, with abdominal pain triggered by certain foods such as chocolate and greasy foods. She is exploring dietary modifications to manage her symptoms. [facility] Medical History Cesar neuroma De Quervain's tenosynovitis Depression Lower back pain GORAN (generalized anxiety disorder) Family History Brother Family hx of prostate cancer Alcoholism Mother HTN (hypertension) Hypothyroidism Father Bladder cancer Brother Alcoholism Sister Alcoholism Social History Housing: Condominium Patient Tobacco Use Status: Never used Tobacco e-Cigarette/Vaping Use: Never Used Current occupational status: retired Cognitive needs: No Hearing needs: No Vision needs: No Questionnaire PHQ-9 Over the last 2 weeks, how often have you been bothered by any of the following problems? 1. Little interest or pleasure in doing things: several days 2. Feeling down, depressed, or hopeless: several days 3. Trouble falling or staying asleep, or sleeping too much: more than half the days 4. Feeling tired or having little energy: more than half the days 5. Poor appetite or overeating: nearly every day 6. Feeling bad about yourself - or that you are a failure or have let yourself or your family down: more than half the days 7. Trouble concentrating on things, such as reading the newspaper or watching television: nearly every day 8. Moving or speaking so slowly that other people could have noticed. Or the opposite - being so fidgety or restless that you have been moving around a lot more than usual: not at all 9. Thoughts that you would be better off or of hurting yourself in some way: not at all Total score: 14 Depression Screening Interpretation: Positive Depression Screening Done: Yes Source: Developed by Drs. Keagan Jackson, Briseyda Osorio, Vince Richey and colleagues, with an educational amisha from [employer]. Thrive Questionnaire Date Thrive assessed: 04/30/25 I am a: Patient What is your living situation today?: I have a steady place to live Within the past 12 months, did the food you bought not last and you didn't have the money to get more?: Never true Within the past 12 months, did you worry whether your food would run out before you got money to buy more?: Never true Do you have trouble paying for medicines?: I choose not to answer this question Do you have trouble getting transportation to medical appointments?: No Do you have trouble paying your heating and electricity bill?: No Do you have trouble taking care of your child, family member or friend?: No Do you have trouble with day-to-day activities such as bathing, preparing meals, shopping, managing finances, etc.?: No Are you currently unemployed and looking for a job?: No Are you interested in more education?: No Please select the resources that you would like help with: None Currently or been in a relationship where the following occur: No concerns reported THRIVE Score: 0 AUDIT C Alcohol Use Questionnaire (AUDIT-C) 1. How often do you have a drink containing alcohol?: Never Total Score: 0 GORAN-7 AMB Questionnaire GORAN-7 Date GORAN - 7 assessed: 04/30/25 Feeling nervous, anxious, or on edge: 1 = Several days Not being able to stop or control worryin = Several days Worrying too much about different things: 1 = Several days Trouble relaxin = More than half the days Being so restless that it is hard to sit still: 0 = Not at all Becoming easily annoyed or irritable: 1 = Several days Feeling afraid as if something awful might happen: 1 = Several days Total GORAN-7 score (0-4 normal; 5-9 mild; 10-14 moderate; 15-21 severe): 7 Source: Developed by Drs. Keagan Jackson, Briseyda Osorio, Vince Richey and colleagues, with an educational amisha from [employer]. Review of Systems Const Details: - General: Reports fatigue, denies fever. - Endocrine: Reports fatigue, denies hot flashes. - Musculoskeletal: Reports neck pain, denies joint swelling. - Neurological: Reports headaches, denies dizziness. - Psychiatric: Reports anxiety and depression, denies hallucinations. - Gastrointestinal: Reports abdominal pain triggered by certain foods, denies nausea. - Respiratory: Reports sinus headaches, denies cough. Reports headache(s) (On and off) Eyes Denies loss of vision ENT Denies vertigo, Denies dizziness, Reports headache(s) (On and off), Reports nasal congestion (On and off), Reports neck pain and Denies sore throat Card Denies chest pain, Denies leg edema and Denies lightheadedness Resp Denies cough, Denies hemoptysis and Denies wheezing GI Denies abdominal pain, Denies melena, Denies constipation, Reports GI cramping (Depending on what she eats), Denies diarrhea and Denies vomiting Denies urinary frequency, Denies dysuria and Denies urinary urgency Musc Denies arthralgias, Denies joint swelling, Reports neck pain, Denies numbness and Denies tingling Neuro Denies Abnormal speech present, Denies behavioral changes, Denies vertigo, Denies dizziness, Reports headache(s) (On and off), Denies loss of vision, Denies memory loss, Denies numbness and Denies tingling Psych Denies anxiety, Denies behavioral changes, Denies depression, Denies memory loss, Denies panic attacks and Reports other (Hot flashes intermittently) James/Lymph Denies easy bleeding and Denies easy bruising Aller/Immun Denies wheezing Physical exam (Primary Care) Vital Signs: Last Vital Signs Temp 97.5 F 04/30/25 13:18 Pulse 72 04/30/25 13:18 Resp 18 04/30/25 13:18 BP 110/62 04/30/25 13:18 Pulse Ox 98 04/30/25 13:18 Oxygen Delivery Method Room Air 04/30/25 13:18 BMI result Body Mass Index 27.9 Tobacco/Smoking Status: Tobacco use Status Tobacco use date assessed 04/30/25 04/30/25 13:30 Patient Tobacco Use Status Never used Tobacco 04/30/25 13:21 e-Cigarette/Vaping Use Never Used 04/30/25 13:30 PHQ-9: PHQ-9 Score PHQ-9: Total score 14 04/30/25 13:43 Depression Screening Interpretation: Positive Thrive Assessment: Date of Thrive Assessment Date Thrive assessed 04/30/25 04/30/25 13:30 Currently or been in a relationship where the following occur: No concerns reported Const General: healthy appearing, no acute distress, alert and awake Nutritional Appearance: well nourished Orientation/consciousness: oriented to person, oriented to place and oriented to time HENMT Ears: TM's normal bilaterally General nose exam: Normal nasal mucous membranes and turbinates present Eyes Conjunctivae: conjunctivae normal Sclerae: sclerae normal Pupils: Equal, round and reactive pupils present Neck Neck: Yes no lymphadenopathy and Yes no JVD Thyroid: Thyroid normal Carotids: no bruits Resp Effort & Inspection: normal respiratory effort and not tachypneic Auscultation: no crackles, no rales, no rhonchi and no wheezes Cardio Rate: regular rate Rhythm: regular rhythm Heart sounds: no murmurs and normal S1 and S2 GI Palpation (GI): Soft to palpation, nontender, no hepatomegaly and no splenomegaly Auscultation: normal bowel sounds Skin General skin exam: no rashes or lesions noted and dry skin Neuro General: oriented to person, oriented to place and oriented to time Cranial nerves: Yes Equal, round and reactive pupils present Speech: No Abnormal speech present Gait exam (Neuro): Normal gait present Motor exam (neuro): no tremor noted Extrem Right upper extremity: full ROM Left upper extremity: full ROM Right lower extremity: full ROM; no edema Left lower extremity: full ROM; no edema Psych Mental Status: mental status grossly normal Speech and movement: Normal speech and movement present Affect: normal affect Attitude: cooperative Thought process: Normal thought process present Results Reviewed Results Reviewed: Laboratory Tests 04/22/25 04/22/25 08:10 08:14 WBC 4.7 L RBC 4.35 Hgb 13.8 Hct 39.0 MCV 89.7 MCH 31.7 MCHC 35.4 H RDW 12.4 Plt Count 224 MPV 9.7 Sodium 140 Potassium 4.8 Chloride 105 Carbon Dioxide 29 Anion Gap 11 L BUN 18 H Creatinine 0.82 Estim Creat Clear Calc Not Reportable Estimated GFR > 60 Fasting Glucose 87 Uric Acid 4.0 Calcium 9.4 Total Bilirubin 0.7 AST 27 ALT 25 Alkaline Phosphatase 66 C-React Prot High Sens 0.7 Total Protein 7.1 Albumin 4.6 Triglycerides 115 Cholesterol 196 LDL Cholesterol, Calc 117 H HDL Cholesterol 56 25-OH Vitamin D Total 57.8 TSH 5.38 H Free T4 0.86 Urine Color Yellow Urine Appearance Clear Urine pH 6.0 Ur Specific [place] 1.020 Urine Protein Negative Urine Glucose (UA) Negative Urine Ketones Negative Urine Blood Negative Urine Nitrite Negative Ur Leukocyte Esterase Small (1+) H Urine RBC 0-2 Urine WBC 0-5 Ur Squamous Epith Cells 0-2 Urine Bacteria None Seen Hyaline Casts 0-2 Coding Level of Care Code Est Pt Prev Care 40-64y(00453) Diagnoses Annual physical exam Z00.00 GORAN (generalized anxiety disorder) F41.1 Depression, unspecified depression type F32.A Depression Type: unspecified Hypothyroidism, unspecified type E03.9 Hypothyroidism type: unspecified Menopause Z78.0 Cervical spondylosis M47.812 Chronic sinusitis, unspecified location J32.9 Sinusitis location: unspecified location Irritable bowel syndrome, unspecified type K58.9 Irritable bowel syndrome type: unspecified Hyperlipidemia, unspecified hyperlipidemia type E78.5 Hyperlipidemia type: unspecified Time Spent (min) 39 Assessment & Plan Assessment & Plan (1) Annual physical exam: Code(s): Z00.00 - Encounter for general adult medical examination without abnormal findings Category: Medical (2) GORAN (generalized anxiety disorder): Code(s): F41.1 - Generalized anxiety disorder Category: Medical (3) Depression: Code(s): F32.A - Depression, unspecified Category: Medical Qualifiers: Depression Type: unspecified Qualified Code(s): F32.A - Depression, unspecified (4) Hypothyroidism: Code(s): E03.9 - Hypothyroidism, unspecified Category: Medical Qualifiers: Hypothyroidism type: unspecified Qualified Code(s): E03.9 - Hypothyroidism, unspecified (5) Menopause: Code(s): Z78.0 - Asymptomatic menopausal state Category: Medical (6) Cervical spondylosis: Code(s): M47.812 - Spondylosis without myelopathy or radiculopathy, cervical region Category: Medical (7) Chronic sinusitis: Code(s): J32.9 - Chronic sinusitis, unspecified Category: Medical Qualifiers: Sinusitis location: unspecified location Qualified Code(s): J32.9 - Chronic sinusitis, unspecified (8) IBS (irritable bowel syndrome): Code(s): K58.9 - Irritable bowel syndrome, unspecified Category: Medical Qualifiers: Irritable bowel syndrome type: unspecified Qualified Code(s): K58.9 - Irritable bowel syndrome, unspecified (9) HLD (hyperlipidemia): Code(s): E78.5 - Hyperlipidemia, unspecified Category: Medical Qualifiers: Hyperlipidemia type: unspecified Qualified Code(s): E78.5 - Hyperlipidemia, unspecified Plan Plan Preventative guidelines and labs reviewed with the patient 1. Subclinical Hypothyroidism The patient will start a trial of low-dose levothyroxine to address symptoms of fatigue associated with subclinical hypothyroidism. The effectiveness of this treatment will be reassessed in six weeks with follow-up lab tests to monitor thyroid function. 2. Cervical Spondylosis The patient is advised to manage cervical spondylosis conservatively with stretching exercises and physical therapy to strengthen neck muscles and alleviate pain. NSAIDs such as ibuprofen may be used as needed for pain management, with caution advised regarding gastrointestinal side effects. 3. Menopause The patient is advised to continue using vitamin E and Prozac to manage menopausal symptoms. Hormone replacement therapy was discussed, but due to potential risks, it is recommended to consult with an SALES WAREHOUSE DRIVER for further evaluation and management options. 4. Hyperlipidemia Dietary modifications are recommended to manage hyperlipidemia, focusing on reducing intake of high-cholesterol foods. The patient is encouraged to increase consumption of vegetables and reduce foods like ice cream and bread. 5. Sinusitis The patient is advised to use saline nasal sprays for symptom relief from sinusitis and to avoid Zyrtec due to its drying effects. Further management will depend on symptom progression and response to current interventions. 6. Anxiety And Depression The patient is currently on Prozac for anxiety and depression, with a recent increase to 20 mg. A referral to a psychiatrist is recommended to explore the possibility of switching to duloxetine, which may also aid in managing arthritis symptoms. 7. Irritable Bowel Syndrome The patient is advised to monitor dietary triggers for irritable bowel syndrome, such as chocolate and greasy foods, and to make dietary adjustments accordingly to manage symptoms. Orders: Orders Free T4 (Free Thyroxine) 6 Weeks E03.9 - Hypothyroidism, unspecified TSH reflex Free T4 6 Weeks E03.9 - Hypothyroidism, unspecified Triiodothyronine T3 Total 6 Weeks E03.9 - Hypothyroidism, unspecified Triiodothyronine T3 Free 6 Weeks E03.9 - Hypothyroidism, unspecified Triiodothyronine T3 Reverse 6 Weeks E03.9 - Hypothyroidism, unspecified Thyroid Peroxidase Antibodies 6 Weeks E03.9 - Hypothyroidism, unspecified Medications: New ibuprofen 800 mg PO Q8H PRN 30 tabs 1RF pain levothyroxine (Levoxyl) 25 mcg PO DAILY 60 tabs 2RF
--- OUTSIDE RECORDS SUMMARY | 2025-04-30 14:34 | XMS_ITS | Clinical Summary ---
Author Organization [facility] Address [address] [place] [address] Care Team Providers Care Agent Licensing Clerk Name Role Phone Unavailable Primary Care Provider [...] 1 tablet by mouth daily. 0 Active [place]-3 Fatty Acids (FISH OIL PO) Take 1,600 [...]
--- OUTSIDE RECORDS SUMMARY | 2025-04-30 14:34 | XMS_ITS | Clinical Summary ---
Author Organization [facility] Address [address] [place] [address] Care Team Providers Care Ticketer Name Role Phone Gary Das MD Primary Care Provider [phone] Surgical History Surgery Date Site/Laterality Comments ESOPHAGOGASTRODUODENOSCOPY [...] (2 - Td or Tdap) 06/01/2022 06/01/2012 Depression Screening 08/29/2024 COVID-19 Vaccine (1 - 2023-2 5 season) 2025 Influenza Vaccine (#1) 2025 6, 07/29/2007, 07/24/2006 [...] Recently Relevant to Health Maintenance Care Teams Ticketer Relationship Specialty Start Date End Date Gary Das MD [address] [place] [address] PCP - General Internal Medicine 07/02/11
== END 2025-04-30 14:26 | disposition home or self-care (01) ==
LOC: HO.HMCH 13:17
DX: Z00.00 Encounter for general adult medical examination without abnormal findings (principal); F41.1 Generalized anxiety disorder; F32.A Depression, unspecified; E03.9 Hypothyroidism, unspecified; Z78.0 Asymptomatic menopausal state; M47.812 Spondylosis without myelopathy or radiculopathy, cervical region; J32.9 Chronic sinusitis, unspecified; K58.9 Irritable bowel syndrome, unspecified; E78.5 Hyperlipidemia, unspecified

== ENCOUNTER 2025-05-15 10:34 | Outpatient (REF) | payer MEDICARE, SELFPAY ==
--- NOTE | ~2025-05-15 | MM_ITS ---
EXAMINATION: MM SCREENING DIGITAL BREAST TOMOSYNTHESIS, BILATERAL CLINICAL INFORMATION: Screening. Asymptomatic. COMPARISON: Mammography: Baseline. TECHNIQUE: Digital breast mammography with tomosynthesis is performed in both the craniocaudal and mediolateral oblique views along with computer-aided detection (CAD). FINDINGS: There are scattered areas of fibroglandular density (ACR BI-RADS breast composition Category b). There are no significant masses, abnormal calcifications, or other abnormalities. MM/MM tomosynthesis screening BI IMPRESSION: No mammographic evidence of malignancy. ASSESSMENT: BI-RADS BI-RADS 1 - Negative RECOMMENDATION: Routine annual mammography screening. 1 year F/U This examination should not preclude the clinical evaluation of a suspicious palpable abnormality. This patient's information was entered into a reminder system with a target due date for their next mammogram. Electronically signed by: Shaylee Fulton DO 05/17/2025 06:01 PM EDT
--- OUTSIDE RECORDS SUMMARY | 2025-05-15 13:02 | XMS_ITS | Clinical Summary ---
Author Organization [facility] Address [address] [place] [address] Care Team Providers Care Barrel Cleaner Name Role Phone Gary Das MD Primary Care Provider [phone] Surgical History Surgery Date Site/Laterality Comments ESOPHAGOGASTRODUODENOSCOPY 02/18/09 PROCEDURE: [place] EGD TRANSORAL BIOPSY SINGLE/MULTIPLE; COMMENT: Nl esophagus-biopsy:normal, Antral gastritis and 2 small polyps-biopsy:reactive gastropathy and intestinal metaplasia. Nl sb-biopsy:Nl OTHER SURGICAL HISTORY 12/14/2016 PROCEDURE: [place] EXC BRANCHIAL CLEFT CYST CONFINED SKN&SUBQ TIS; COMMENT: Dr. Kiersten Angela; left neck inclusion cyst 0.6 cm EYE SURGERY PROCEDURE: HISTORICAL EYE SURGERY; COMMENT: lasik bilaterally, left lattis surgery OTHER SURGICAL HISTORY PROCEDURE: [place] RADIAL KERATOTOMY; COMMENT: left eye Medical History [...] Recently Relevant to Health Maintenance Care Teams Barrel Cleaner Relationship Specialty Start Date End Date Gary Das MD [address] [place] [address] PCP - General Internal Medicine 07/02/11
--- OUTSIDE RECORDS SUMMARY | 2025-05-15 13:02 | XMS_ITS | Patient Health Record ---
Author Organization [facility] Address [address] [place] [address] Care Team Providers Care Geodetic Surveyor Technologist Name Role Phone [facility] Primary Care Provider Unavailable Amilcar Booth Unavailable [phone] Allergies No Known Allergies Reason For Referral [...] Notes Problem Spinal stenosis in cervical region (35809572) Spinal stenosis, cervical region (M48.02) Active confirmed Problem Lumbar radiculopathy (575717269) Radiculopathy, lumbar region (M54.16) Active confirmed Problem Acute pain of right knee (M25.561) Active confirmed Problem Carpal tunnel syndrome of left wrist (614927776094505) Carpal tunnel syndrome of left wrist (G56.02) Active confirmed Problem Radial styloid tenosynovitis (65354100) 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) Active confirmed Problem Other tear of medial meniscus of right knee as current injury, initial encounter (S83.241A) Active confirmed Problem Entrapment of right ulnar nerve (284412316158833) Entrapment of right ulnar nerve (G56.21) Active confirmed Plan Of Treatment Pending Test Test Name Order Date DAVEY- C-spine Interlaminar CPT 66156 02/27 MRI LUMBAR SPINE WO CONTRAST 03/25/2021 Physical Therapy 1-2x a week x 6 weeks 0 12/16/2021 Insurance Providers Payer Name Payer Address Payer Phone Subscriber Number Group Number Insured Name Patient Relationship to Insured Coverage Start Date Coverage End Date [place] [facility] CTY [address] [facility] 4TH [place] [address] [id number] Regina Khan Self - patient is the insured Medical (General) History Medical History History ICD Code PTSD depression anxiety Panic attacks mood disorder fibromyalgia degenerative disc disease back pain neck pain sciatica asthma hashimotos thyroiditis Arthritis carpal tunnel Surgical History Surgery Date(Month/Year) none Hospitalization History Reason Date(Month/Year) none
--- OUTSIDE RECORDS SUMMARY | 2025-05-15 13:02 | XMS_ITS | Clinical Summary ---
Author Organization [facility] Address [address] [place] [address] Care Team Providers Care Law Instructor Name Role Phone Unavailable Primary Care Provider [...] 1 tablet by mouth daily. 0 Active [place]-3 Fatty Acids (FISH OIL PO) Take 1,600 [...]
== END 2025-05-15 10:35 | disposition home or self-care (01) ==
LOC: HO.MAMMO 10:34
DX: Z12.31 Encounter for screening mammogram for malignant neoplasm of breast (principal)
CPT/HCPCS: 77063; 77067

== ENCOUNTER → 2025-05-15 10:45 | Outpatient (BNV) | payer MEDICARE, SELFPAY | PROVIDERS: Visit Provider Internal Medicine | DX: Z12.31 Encounter for screening mammogram for malignant neoplasm of breast (principal) | CPT/HCPCS: 77063; 77067 ==

== ENCOUNTER 2025-06-03 07:21 | Day surgery (SDC) | payer MEDICARE, SELFPAY ==
--- OUTSIDE RECORDS SUMMARY | 2025-04-19 11:31 | XMS_ITS | Clinical Summary ---
Author Organization [facility] Address [address] [place] [address] Care Team Providers Care Oracle Webcenter Consultant Name Role Phone Unavailable Primary Care Provider [...] 1 tablet by mouth daily. 0 Active [place]-3 Fatty Acids (FISH OIL PO) Take 1,600 [...]
--- OUTSIDE RECORDS SUMMARY | 2025-04-19 11:31 | XMS_ITS | Patient Health Record ---
Author Organization [facility] Address [address] [place] [address] Care Team Providers Care Weigher Alloy Name Role Phone [facility] Primary Care Provider Unavailable Amilcar Booth Unavailable [phone] Allergies No Known Allergies Reason For Referral [...] Notes Problem Spinal stenosis in cervical region (69409393) Spinal stenosis, cervical region (M48.02) Active confirmed Problem Lumbar radiculopathy (942714766) Radiculopathy, lumbar region (M54.16) Active confirmed Problem Acute pain of right knee (M25.561) Active confirmed Problem Carpal tunnel syndrome of left wrist (156170529191112) Carpal tunnel syndrome of left wrist (G56.02) Active confirmed Problem Radial styloid tenosynovitis (47777791) 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) Active confirmed Problem Other tear of medial meniscus of right knee as current injury, initial encounter (S83.241A) Active confirmed Problem Entrapment of right ulnar nerve (888046356303387) Entrapment of right ulnar nerve (G56.21) Active confirmed Plan Of Treatment Pending Test Test Name Order Date DAVEY- C-spine Interlaminar CPT 41826 02/27 MRI LUMBAR SPINE WO CONTRAST 03/25/2021 Physical Therapy 1-2x a week x 6 weeks 0 12/16/2021 Insurance Providers Payer Name Payer Address Payer Phone Subscriber Number Group Number Insured Name Patient Relationship to Insured Coverage Start Date Coverage End Date [place] [facility] [place] [address] [facility] [facility] 4TH FLOOR [place] [address] [id number] Regina Khan Self - patient is the insured Medical (General) History Medical History History ICD Code PTSD depression anxiety Panic attacks mood disorder fibromyalgia degenerative disc disease back pain neck pain sciatica asthma hashimotos thyroiditis Arthritis carpal tunnel Surgical History Surgery Date(Month/Year) none Hospitalization History Reason Date(Month/Year) none
--- OUTSIDE RECORDS SUMMARY | 2025-04-19 11:31 | XMS_ITS | Clinical Summary ---
Author Organization [facility] Address [address] [place] [address] Care Team Providers Care Cloth Desizing Range Tender Name Role Phone Gary Das MD Primary Care Provider [phone] Surgical History Surgery Date Site/Laterality Comments ESOPHAGOGASTRODUODENOSCOPY 02/18/09 PROCEDURE: RI EGD TRANSORAL BIOPSY SINGLE/MULTIPLE; COMMENT: Nl esophagus-biopsy:normal, Antral gastritis and 2 small polyps-biopsy:reactive gastropathy and intestinal metaplasia. Nl sb-biopsy:Nl OTHER SURGICAL HISTORY 12/14/2016 PROCEDURE: RI EXC BRANCHIAL CLEFT CYST CONFINED SKN&SUBQ TIS; COMMENT: Dr. Kiersten Angela; left neck inclusion cyst 0.6 cm EYE SURGERY PROCEDURE: HISTORICAL EYE SURGERY; COMMENT: lasik bilaterally, left lattis surgery OTHER SURGICAL HISTORY PROCEDURE: RI RADIAL KERATOTOMY; COMMENT: left eye Medical History [...] Recently Relevant to Health Maintenance Care Teams Cloth Desizing Range Tender Relationship Specialty Start Date End Date Gary Das MD [address] [place] [address] PCP - General Internal Medicine 07/02/11
--- NOTE | 2025-06-03 08:17 | MHC.SHP ---
Pre-Procedural Eval Section A - 24 Hr Update-Section A only Date of Service: 06/03/25 The patient is an INPATIENT: No Changes since office visit: No Cold of Flu in the past 2 weeks, No New Medical Problems, No Changes in Medication and No Patient answered all questions The patient has been examined within 24 hours of the surgical procedure. The History & Physical has been completed within 30 days and I have reviewed it.: Yes Section B - Complete if H&P > 30 days Chief Complaint: Radial styloid tenosynovitis [de Quervain] Allergies: Allergies Allergy/AdvReac Type Severity Reaction Status Date / Time clarithromycin (Biaxin) Allergy Unknown Hives Verified 04/30/25 21:52 omeprazole AdvReac Unknown malaise Verified 04/30/25 21:52 Plan I have reviewed the history and physical and performed a pertinent physical examination on my patient. No changes have occurred unless specified. Time Spent With Patient Time: Total time managing care of this patient today ____ minutes.
--- NOTE | 2025-06-03 08:18 | W.PM.OPN ---
Operative Note Operative Note Date of Service: 06/03/25 Narrative: Operative Note Preop diagnosis: 1. Right DeQuervain's tenosynovitis Postop diagnosis: 1. Right DeQuervain's tenosynovitis Procedure: 1. Right 1st dorsal compartment release Surgeon: Sandi Rodriguez MD Wireless Manager: None Anesthesia: local block using 1% lidocaine with epinephrine Findings: Thickened 1st dorsal compartment. EBL: Less than 5 mL Tourniquet time: None Specimens: None Complications: None Disposition: Brought to recovery room in stable condition Plan: Follow-up for 7-10 days for wound check and suture removal Indications: The patient is 55 years old, with right DeQuervain's tenosynovitis that has been unresponsive to nonoperative management. The risks and benefits of operative treatment including but not limited to risk of damage to blood vessels, nerves, tendons, infection, persistent pain, persistent symptoms, recurrence or possible need for additional surgery were discussed with the patient and the patient wishes to proceed with surgery. Procedure: Once consent was obtained a local block was performed in the preop area using a combination of 1% lidocaine with epinephrine. The patient was then brought back to the operating suite and placed on the operative table in supine position. The right upper extremity was prepped and draped in a standard surgical fashion. Once assured that we had a good block, a 1.5 cm longitudinal incision was made centered over the 1st dorsal compartment as it passed over the radial styloid of the right wrist. The incision was made through the skin to the subcutaneous tissues using a #15 blade. Careful dissection was made down to the level of the 1st dorsal compartment using tenotomy scissors, with care being taken to protect the nearby branches of the superficial radial nerve. Once the 1st dorsal compartment was exposed, A longitudinal incision was made in the 1st dorsal compartment 1st using a #15 blade, then using tenotomy scissors under direct visualization. The 1st dorsal compartment was noted to be thickened. We noted that she had a separate compartment for the EPB tendon. This was also incised longitudinally using a 15. Blade and tenotomy scissors under direct visualization. Following our release, we saw smooth gliding abductor pollicis longus and extensor pollicis brevis tendons. Once satisfied with our 1st dorsal compartment release the wound was copiously irrigated with normal saline and hemostasis was obtained with a brief period of local pressure. The subcutaneous layer was closed with some 4-0 Vicryl suture, and the skin edges were reapproximated with some 5.0 nylon suture material. A sterile dressing was applied. The patient appears to have tolerated the procedure well and with no complications. All digits were well vascularized at the conclusion of the case.
[2025-06-03 09:21] VITALS: BP 117/50; PULSE 58; RESP 12; TEMP 36.6; O2SAT 96; BMI 26.6
--- NOTE | 2025-06-03 09:38 | MHC.SHP ---
Pre-Procedural Eval Section A - 24 Hr Update-Section A only Date of Service: 06/03/25 The patient is an INPATIENT: No Changes since office visit: No Cold of Flu in the past 2 weeks, No New Medical Problems, No Changes in Medication and No Patient answered all questions The patient has been examined within 24 hours of the surgical procedure. The History & Physical has been completed within 30 days and I have reviewed it.: Yes Section B - Complete if H&P > 30 days Chief Complaint: Radial styloid tenosynovitis [de Quervain] Allergies: Allergies Allergy/AdvReac Type Severity Reaction Status Date / Time clarithromycin (Biaxin) Allergy Unknown Hives Verified 06/03/25 09:20 omeprazole AdvReac Unknown malaise Verified 06/03/25 09:20 Plan Diagnosis/Plan: Unchanged I have reviewed the history and physical and performed a pertinent physical examination on my patient. No changes have occurred unless specified. Time Spent With Patient Time: Total time managing care of this patient today ____ minutes.
[2025-06-03 10:41] VITALS: BP 112/52; PULSE 57; RESP 16; O2SAT 98
== END 2025-06-03 11:17 | disposition home or self-care (01) ==
PROVIDERS: Visit Provider Orthopaedic Surgery
PROC: (CPT 25000; principal; 2025-06-03 10:10)
DX: M65.4 Radial styloid tenosynovitis [de Quervain] (principal); M79.644 Pain in right finger(s); M79.89 Other specified soft tissue disorders; G57.60 Lesion of plantar nerve, unspecified lower limb; F32.A Depression, unspecified; F41.1 Generalized anxiety disorder; Z88.8 Allergy status to other drugs, medicaments and biological substances
CPT/HCPCS: 25000; J0165; J2003

== ENCOUNTER → 2025-06-03 07:21 | Outpatient (BNV) | payer MEDICARE, SELFPAY | PROVIDERS: Visit Provider Orthopaedic Surgery | DX: M65.4 Radial styloid tenosynovitis [de Quervain] (principal) | CPT/HCPCS: 25000 ==

== ENCOUNTER 2025-06-11 12:27 | Outpatient (REF) | payer MEDICARE, SELFPAY ==
[2025-06-11 14:49] LABS: Free T4 (Free Thyroxine) 0.93 ng/dL (0.71-1.85)
--- OUTSIDE RECORDS SUMMARY | 2025-06-11 15:09 | XMS_ITS | Clinical Summary ---
Author Organization [facility] Address [address] [place] [address] Care Team Providers Care Molded Grid And Parts Inspector Name Role Phone Gary Das MD Primary Care Provider [phone] Surgical History Surgery Date Site/Laterality Comments ESOPHAGOGASTRODUODENOSCOPY 02/18/09 PROCEDURE: [place] EGD TRANSORAL BIOPSY SINGLE/MULTIPLE; COMMENT: Nl esophagus-biopsy:normal, Antral gastritis and 2 small polyps-biopsy:reactive gastropathy and intestinal metaplasia. Nl sb-biopsy:Nl OTHER SURGICAL HISTORY 12/14/2016 PROCEDURE: [place] EXC BRANCHIAL CLEFT CYST CONFINED SKN&SUBQ TIS; COMMENT: Dr. Kiersten Angela; left neck inclusion cyst 0.6 cm EYE SURGERY PROCEDURE: HISTORICAL EYE SURGERY; COMMENT: lasik bilaterally, left lattis surgery OTHER SURGICAL HISTORY PROCEDURE: [place] RADIAL KERATOTOMY; COMMENT: left eye Medical History [...] Influenza Vaccine (#1) 2025 6, 07/29/2007, 07/24/2006 RSV Immunization Adult Patients (1 - 1-dose 75+ series) 2044 HIB Vaccines Aged Out No longer eligi [...] Recently Relevant to Health Maintenance Care Teams Molded Grid And Parts Inspector Relationship Specialty Start Date End Date Gary Das MD [address] [place] [address] PCP - General Internal Medicine 07/02/11
--- OUTSIDE RECORDS SUMMARY | 2025-06-11 15:09 | XMS_ITS | Patient Health Record ---
Author Organization [facility] Address [address] [place] [address] Care Team Providers Care Principal Accounts Clerk Name Role Phone [facility] Primary Care Provider Unavailable Amilcar Booth Unavailable [phone] Allergies No Known Allergies Reason For Referral [...] Notes Problem Spinal stenosis in cervical region (52824678) Spinal stenosis, cervical region (M48.02) Active confirmed Problem Lumbar radiculopathy (734852588) Radiculopathy, lumbar region (M54.16) Active confirmed Problem Acute pain of right knee (M25.561) Active confirmed Problem Carpal tunnel syndrome of left wrist (762488354622125) Carpal tunnel syndrome of left wrist (G56.02) Active confirmed Problem Radial styloid tenosynovitis (30111429) 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) Active confirmed Problem Other tear of medial meniscus of right knee as current injury, initial encounter (S83.241A) Active confirmed Problem Entrapment of right ulnar nerve (174820490778959) Entrapment of right ulnar nerve (G56.21) Active confirmed Plan Of Treatment Pending Test Test Name Order Date DAVEY- C-spine Interlaminar CPT 07147 02/27 MRI LUMBAR SPINE WO CONTRAST 03/25/2021 Physical Therapy 1-2x a week x 6 weeks 0 12/16/2021 Insurance Providers Payer Name Payer Address Payer Phone Subscriber Number Group Number Insured Name Patient Relationship to Insured Coverage Start Date Coverage End Date [place] [place] [address] [address] [place] [phone] [id number] Regina Khan Self - patient is the insured Medical (General) History Medical History History ICD Code PTSD depression anxiety Panic attacks mood disorder fibromyalgia degenerative disc disease back pain neck pain sciatica asthma hashimotos thyroiditis Arthritis carpal tunnel Surgical History Surgery Date(Month/Year) none Hospitalization History Reason Date(Month/Year) none
--- OUTSIDE RECORDS SUMMARY | 2025-06-11 15:09 | XMS_ITS | Clinical Summary ---
Author Organization [facility] Address [address] [place] [address] Care Team Providers Care Gutter Hanger Name Role Phone Unavailable Primary Care Provider [...] 1 tablet by mouth daily. 0 Active [place]-3 Fatty Acids (FISH OIL PO) Take 1,600 [...]
[2025-06-15 13:44] LABS: Triiodothyronine T3 Reverse 12 ng/dL (8-25)
== END 2025-06-11 12:28 | disposition home or self-care (01) ==
LOC: HO.LAB 12:27
DX: Z01.84 Encounter for antibody response examination (principal); E03.9 Hypothyroidism, unspecified
CPT/HCPCS: 36415; 84439; 84443; 84480; 84481; 84482; 86376

== ENCOUNTER 2025-06-17 13:27 | Outpatient (AMB) | payer OTHER, SELFPAY ==
[2025-06-17 13:42] VITALS: BP 98/54; PULSE 74; TEMP 36.3; O2SAT 95; BMI 26.3
--- NOTE | 2025-06-17 13:42 | A.OFFPC_ITS ---
Vital Signs 06/17/25 13:42 Height 5 ft 7 in Weight 168 lb 2 oz BMI 26.3 BP 98/54 L Blood Pressure Location Lt brachial Position Sitting Pulse 74 Pulse Source Pulse Oximeter Temp 97.3 F Pulse Oximetry (%) 95 Oxygen Delivery Method Room Air Intake Visit Reasons: hypothyroids/anxiety/neck pain Director Global Development Required: No Accompanied by: Self / Same As Patient Allergies clarithromycin (Biaxin) Allergy (Intermediate, Verified 06/17/25 14:07) Hives paroxetine (From Paxil) Allergy (Intermediate, Verified 06/17/25 14:07) Rash omeprazole Adverse Reaction (Mild, Verified 06/17/25 14:07) malaise Tobacco use date assessed: 06/17/25 Dental Screening Dental Screen Date: 06/17/25 Did you have a dental visit in the last 12 months?: Yes Did you have a dental problem in the last 6 months where you did not have access to dental care?: No Was dental information given to patient?: Patient has dentist HPI hypothyroids/anxiety/neck pain HPI Details The patient is a 55-year-old female presenting for follow up appointment for hypothyroidism, anxiety, neck pain The patient presenting with thyroid function concerns and gastrointestinal symptoms. She reports experiencing brain fog and concerns about Sherly's thyroiditis, although her TSH levels have been normal. The patient is currently on levothyroxine, which she takes as prescribed, and her thyroid function is being monitored regularly. The patient has a history of cholestasis, which was identified through gallbladder function tests indicating poor bile flow. She experiences discomfort after consuming fatty foods and is considering dietary modifications to manage symptoms. A referral to a item processing clerk has been made for further evaluation. The patient also reports health anxiety, which she is addressing through upcoming mental health consultations. She acknowledges that her anxiety may contribute to her fatigue and is seeking ways to manage it effectively. [facility] Medical History Cesar neuroma De Quervain's tenosynovitis Depression Lower back pain GORAN (generalized anxiety disorder) Family History Brother Family hx of prostate cancer Alcoholism Mother HTN (hypertension) Hypothyroidism Father Bladder cancer Brother Alcoholism Sister Alcoholism Social History (Updated 06/19/25 @ 09:41 by MINDA Hernandez Housing: Condominium Comment: counts correct Patient Tobacco Use Status: Never used Tobacco e-Cigarette/Vaping Use: Never Used service: No Current occupational status: retired Current occupation: rt handed Current occupational exposures/hazards: No Cognitive needs: No Hearing needs: No Vision needs: No Questionnaire Thrive Questionnaire Date Thrive assessed: 04/30/25 I am a: Patient What is your living situation today?: I have a steady place to live Within the past 12 months, did the food you bought not last and you didn't have the money to get more?: Never true Within the past 12 months, did you worry whether your food would run out before you got money to buy more?: Never true Do you have trouble paying for medicines?: I choose not to answer this question Do you have trouble getting transportation to medical appointments?: No Do you have trouble paying your heating and electricity bill?: No Do you have trouble taking care of your child, family member or friend?: No Do you have trouble with day-to-day activities such as bathing, preparing meals, shopping, managing finances, etc.?: No Are you currently unemployed and looking for a job?: No Are you interested in more education?: No Please select the resources that you would like help with: None Currently or been in a relationship where the following occur: No concerns reported THRIVE Score: 0 AUDIT C Alcohol Use Questionnaire (AUDIT-C) 1. How often do you have a drink containing alcohol?: Never 3. How often do you have six or more drinks on one occasion?: Never Total Score: 0 GORAN-7 AMB Questionnaire GORAN-7 Date GORAN - 7 assessed: 04/30/25 Source: Developed by Drs. Keagan Jackson, Briseyda Osorio, Vince Richey and colleagues, with an educational amisha from [employer]. Review of Systems Const Reports difficulty sleeping, Denies headache(s) and Reports lethargy Eyes Denies loss of vision ENT Denies vertigo, Denies dizziness, Denies headache(s), Reports neck pain (on and off) and Denies sore throat Card Denies chest pain, Denies leg edema and Denies lightheadedness Resp Denies cough, Denies hemoptysis and Denies wheezing GI Denies abdominal pain, Denies melena, Denies constipation, Reports heartburn (On and off), Denies diarrhea, Denies vomiting and Reports other (Discomfort associated with fatty foods) Denies urinary frequency, Denies dysuria and Denies urinary urgency Musc Denies arthralgias, Denies joint swelling, Reports neck pain (on and off), Denies numbness and Denies tingling Neuro Denies Abnormal speech present, Denies behavioral changes, Denies vertigo, Denies dizziness, Denies headache(s), Denies loss of vision, Denies memory loss, Denies numbness and Denies tingling Psych Reports anxiety, Denies behavioral changes, Denies depression, Denies memory loss and Denies panic attacks James/Lymph Denies easy bleeding and Denies easy bruising Aller/Immun Denies wheezing Physical exam (Primary Care) Vital Signs: Last Vital Signs Temp 97.3 F 06/17/25 13:42 Pulse 74 06/17/25 13:42 BP 98/54 L 06/17/25 13:42 Pulse Ox 95 06/17/25 13:42 Oxygen Delivery Method Room Air 06/17/25 13:42 BMI result Body Mass Index 26.3 Tobacco/Smoking Status: Tobacco use Status Tobacco use date assessed 06/17/25 06/17/25 13:46 Patient Tobacco Use Status Never used Tobacco 06/17/25 13:46 e-Cigarette/Vaping Use Never Used 06/17/25 13:46 Thrive Assessment: Date of Thrive Assessment Date Thrive assessed 04/30/25 06/17/25 13:46 Currently or been in a relationship where the following occur: No concerns reported Const General: healthy appearing, no acute distress, alert and awake Nutritional Appearance: well nourished Orientation/consciousness: oriented to person, oriented to place and oriented to time HENMT Ears: TM's normal bilaterally General nose exam: Normal nasal mucous membranes and turbinates present Eyes Conjunctivae: conjunctivae normal Sclerae: sclerae normal Pupils: Equal, round and reactive pupils present EOM: EOMs intact bilaterally Neck Neck: Yes no lymphadenopathy and Yes no JVD Thyroid: Thyroid normal Carotids: no bruits Resp Effort & Inspection: normal respiratory effort and not tachypneic Auscultation: no crackles, no rales, no rhonchi and no wheezes Cardio Rate: regular rate Rhythm: regular rhythm Heart sounds: S1 normal heart sound present, S2 normal heart sound present, no murmurs and normal S1 and S2 GI Palpation (GI): Soft to palpation, nontender, no hepatomegaly and no splenomegaly Auscultation: normal bowel sounds Back/Spine/Pelvis Cervical Spine: No Cervical spine tenderness Thoracic/Lumbar Spine: No lumbar spinal tenderness Skin General skin exam: no rashes or lesions noted and dry skin Neuro General: oriented to person, oriented to place and oriented to time Cranial nerves: Yes Equal, round and reactive pupils present Speech: No Abnormal speech present Gait exam (Neuro): Normal gait present Motor exam (neuro): no tremor noted Extrem Right upper extremity: full ROM Left upper extremity: full ROM Right lower extremity: full ROM; no edema Left lower extremity: full ROM; no edema Psych Mental Status: mental status grossly normal Speech and movement: Normal speech and movement present Affect: normal affect Attitude: cooperative Thought process: Normal thought process present Results Reviewed Results Reviewed: Laboratory Tests 06/11/25 12:50 TSH 3.06 Free T4 0.93 Free T3 3.1 Reverse T3 12 Total T3 87 Coding Level of Care Code Est Pt Level 4 (18194) Diagnoses GORAN (generalized anxiety disorder) F41.1 Depression, unspecified depression type F32.A Depression Type: unspecified Hypothyroidism, unspecified type E03.9 Hypothyroidism type: unspecified Menopause Z78.0 Cervical spondylosis M47.812 Chronic sinusitis, unspecified location J32.9 Sinusitis location: unspecified location Irritable bowel syndrome, unspecified type K58.9 Irritable bowel syndrome type: unspecified Hyperlipidemia, unspecified hyperlipidemia type E78.5 Hyperlipidemia type: unspecified Chronic low back pain with sciatica, sciatica laterality unspecified, unspecified back pain laterality M54.40; G89.29 Chronicity: chronic Back pain laterality: unspecified Sciatica presence: with sciatica Sciatica laterality: sciatica laterality unspecified De Quervain's tenosynovitis M65.4 Heartburn R12 Time Spent (min) 39 Assessment & Plan Assessment & Plan (1) GORAN (generalized anxiety disorder): Code(s): F41.1 - Generalized anxiety disorder Category: Medical Plan: Encouraged CBT. Patient has upcoming appointment with Psychiatry Continue fluoxetine 20 mg daily, lorazepam 0.5 mg daily p.r.n. (2) Depression: Code(s): F32.A - Depression, unspecified Category: Medical Qualifiers: Depression Type: unspecified Qualified Code(s): F32.A - Depression, unspecified Plan: Encouraged CBT Denies SI/HI Continue fluoxetine 20 mg daily (3) Hypothyroidism: Code(s): E03.9 - Hypothyroidism, unspecified Category: Medical Qualifiers: Hypothyroidism type: unspecified Qualified Code(s): E03.9 - Hypothyroidism, unspecified Plan: The patient will continue on the current dose of levothyroxine, with regular monitoring of thyroid function to ensure levels remain stable. Further evaluation with thyroid antibody testing is planned to assess for autoimmune thyroiditis. (4) Menopause: Code(s): Z78.0 - Asymptomatic menopausal state Category: Medical Plan: Continue fluoxetine 20 mg daily. Encouraged CBT. Patient isn't interested in any therapy at this time. (5) Cervical spondylosis: Code(s): M47.812 - Spondylosis without myelopathy or radiculopathy, cervical region Category: Medical Plan: Cervical x-ray showed:There is mild to moderate to disc degeneration spanning C3-C7. Mild associated facet degeneration. Continue conservative measures. Warm/cold compresses on for 20 minute intervals. OTC pain medication as needed. Consider PT eval if discmofort persists. (6) Chronic sinusitis: Code(s): J32.9 - Chronic sinusitis, unspecified Category: Medical Qualifiers: Sinusitis location: unspecified location Qualified Code(s): J32.9 - Chronic sinusitis, unspecified Plan: Limit exposure to allergens Air purifiers and dust filters Air conditioner in house, especially where sleeping (7) IBS (irritable bowel syndrome): Code(s): K58.9 - Irritable bowel syndrome, unspecified Category: Medical Qualifiers: Irritable bowel syndrome type: unspecified Qualified Code(s): K58.9 - Irritable bowel syndrome, unspecified Plan: The patient also reports a hx of cholestasis. The patient is advised to modify her diet to reduce fatty food intake, which may alleviate symptoms. A referral to gastroenterology has been made for further evaluation and management of gallbladder function. (8) HLD (hyperlipidemia): Code(s): E78.5 - Hyperlipidemia, unspecified Category: Medical Qualifiers: Hyperlipidemia type: unspecified Qualified Code(s): E78.5 - Hyperlipidemia, unspecified Plan: LDL 117 on 04/22/2025. Discussed lifestyle modifications including dietary changes and physical activity We will repeat lipid panel in 3 months (9) Lower back pain: Code(s): M54.50 - Low back pain, unspecified Category: Medical Qualifiers: Chronicity: chronic Back pain laterality: unspecified Sciatica presence: with sciatica Sciatica laterality: sciatica laterality unspecified Qualified Code(s): M54.40 - Lumbago with sciatica, unspecified side; G89.29 - Other chronic pain Plan: Complaints of chronic lower back pain. X-ray of lumbar spine recently was unremarkable. Encouraged frequent stretches. Avoid bed rest (including sitting in bed) and to simply limit painful activities; improvement usually occurs within a few weeks May use cool packs; may alternate cold and hot packs Exercises a gant (e.g., walking, swimming, cycling) as soon as possible, starting with 5-10 min and walk-in up to 20-30 minute q.day Abdominal core and back strengthening exercises may help to prevent future problems (10) De Quervain's tenosynovitis: Code(s): M65.4 - Radial styloid tenosynovitis [de Quervain] Category: Medical Plan: Patient had fracture 1st dorsal compartment release on 06/13/[address] Rodriguez. No signs or symptoms of infection at incisional site. (11) Heartburn: Code(s): R12 - Heartburn Category: Medical Plan: Do not eat meals or drink carbonated beverages within 3 hr of bedtime Decrease the amount of fried, fatty, and spicy foods to decrease gastric acid production Raise the head of the bed using 4 to 6-inch blocks, especially if nocturnal symptoms are present Lose weight if indicated; avoid tight-fitting clothing, especially around the waist Avoid foods that relax the Lower esophageal sphincter (chocolate, peppermint, high-fat foods etc.,) Continue famotidine 20 mg b.i.d. Plan Orders: Orders Complete Blood Count Auto Diff 3 Months E03.9 - Hypothyroidism, unspecified, E78.5 - Hyperlipidemia, unspecified, F32.A - Depression, unspecified, F41.1 - Generalized anxiety disorder Lipid Panel 3 Months E03.9 - Hypothyroidism, unspecified, E78.5 - Hyper lipidemia, unspecified, F32.A - Depression, unspecified, F41.1 - Generalized anxiety disorder Vitamin D 25-OH Total 3 Months E03.9 - Hypothyroidism, unspecified, E78.5 - Hyp erlipidemia, unspecified, F32.A - Depression, unspecified, F41.1 - Generalized anxiety disorder Comprehensive [place]. Panel Fast 3 Months E03.9 - Hypothyroidism, unspecified, E78.5 - Hyperlipidemia, unspecified, F32.A - Depression, unspecified, F41.1 - Generalized anxiety disorder UA CC w/rflx Micro + Cult 3 Months E03.9 - Hypothyroidism, unspecified, E78.5 - Hyperlipidemia, unspecified, F32.A - Depression, unspecified, F41.1 - Generalized anxiety disorder TSH reflex Free T4 3 Months E03.9 - Hypothyroidism, unspecified, E78.5 - Hyperlipidemia, unspecified, F32.A - Depression, unspecified, F41.1 - Generalized anxiety disorder Free T4 (Free Thyroxine) 3 Months E03.9 - Hypothyroidism, unspecified, E78.5 - Hyperlipidemia, unspecified, F32.A - Depression, unspecified, F41.1 - Generalized anxiety disorder Thyroid Peroxidase Antibodies 3 Months E03.9 - Hypothyroidism, unspecified Thyroglobulin Antibodies 3 Months E03.9 - Hypothyroidism, unspecified Referrals Gastroenterology Referral K58.9 - Irritable bowel syndrome, unspecified, R12 - Heartburn
--- OUTSIDE RECORDS SUMMARY | 2025-06-17 16:36 | XMS_ITS | Clinical Summary ---
Author Organization [facility] Address [address] [place] [id number] Care Team Providers Care Tribal Council Member Name Role Phone Unavailable Primary Care Provider [...] 1 tablet by mouth daily. 0 Active Kismet-3 Fatty Acids (FISH OIL PO) Take 1,600 [...]
--- OUTSIDE RECORDS SUMMARY | 2025-06-17 16:36 | XMS_ITS | Clinical Summary ---
Author Organization [facility] Address [address] [place] [address] Care Team Providers Care Screw Machine Set Up Operator Name Role Phone Gary Das MD Primary Care Provider [phone] Surgical History Surgery Date Site/Laterality Comments ESOPHAGOGASTRODUODENOSCOPY 02/18/09 PROCEDURE: [place] EGD TRANSORAL BIOPSY SINGLE/MULTIPLE; COMMENT: Nl esophagus-biopsy:normal, Antral gastritis and 2 small polyps-biopsy:reactive gastropathy and intestinal metaplasia. Nl sb-biopsy:Nl OTHER SURGICAL HISTORY 12/14/2016 PROCEDURE: NH EXC BRANCHIAL CLEFT CYST CONFINED SKN&SUBQ TIS; COMMENT: Dr. Kiersten Angela; left neck inclusion cyst 0.6 cm EYE SURGERY PROCEDURE: HISTORICAL EYE SURGERY; COMMENT: lasik bilaterally, left [place] surgery OTHER SURGICAL HISTORY PROCEDURE: NH RADIAL KERATOTOMY; COMMENT: left eye Medical History [...] Recently Relevant to Health Maintenance Care Teams Screw Machine Set Up Operator Relationship Specialty Start Date End Date Gary Das MD [address] [place] [address] PCP - General Internal Medicine 07/02/11
--- OUTSIDE RECORDS SUMMARY | 2025-06-17 16:36 | XMS_ITS | Patient Health Record ---
Author Organization [facility] Address [address] [place] [address] Care Team Providers Care Rotary Kiln Operator Name Role Phone [facility] Primary Care Provider Unavailable Amilcar Booth Unavailable [phone] Allergies No Known Allergies Reason For Referral [...] Notes Problem Spinal stenosis in cervical region (61667994) Spinal stenosis, cervical region (M48.02) Active confirmed Problem Lumbar radiculopathy (288561416) Radiculopathy, lumbar region (M54.16) Active confirmed Problem Acute pain of right knee (M25.561) Active confirmed Problem Carpal tunnel syndrome of left wrist (151621748505783) Carpal tunnel syndrome of left wrist (G56.02) Active confirmed Problem Radial styloid tenosynovitis (48235809) 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) Active confirmed Problem Other tear of medial meniscus of right knee as current injury, initial encounter (S83.241A) Active confirmed Problem Entrapment of right ulnar nerve (497204238717052) Entrapment of right ulnar nerve (G56.21) Active confirmed Plan Of Treatment Pending Test Test Name Order Date DAVEY- C-spine Interlaminar CPT 20034 02/27 MRI LUMBAR SPINE WO CONTRAST 03/25/2021 Physical Therapy 1-2x a week x 6 weeks 0 12/16/2021 Insurance Providers Payer Name Payer Address Payer Phone Subscriber Number Group Number Insured Name Patient Relationship to Insured Coverage Start Date Coverage End Date [place] [employer] [place] [address] [place] [address] [id number] Regina Khan Self - patient is the insured Medical (General) History Medical History History ICD Code PTSD depression anxiety Panic attacks mood disorder fibromyalgia degenerative disc disease back pain neck pain sciatica asthma hashimotos thyroiditis Arthritis carpal tunnel Surgical History Surgery Date(Month/Year) none Hospitalization History Reason Date(Month/Year) none
== END 2025-06-17 14:29 | disposition home or self-care (01) ==
LOC: HO.HMCH 13:28
DX: F41.1 Generalized anxiety disorder (principal); F32.A Depression, unspecified; E03.9 Hypothyroidism, unspecified; Z78.0 Asymptomatic menopausal state; M47.812 Spondylosis without myelopathy or radiculopathy, cervical region; J32.9 Chronic sinusitis, unspecified; K58.9 Irritable bowel syndrome, unspecified; E78.5 Hyperlipidemia, unspecified; M54.40 Lumbago with sciatica, unspecified side; G89.29 Other chronic pain; M65.4 Radial styloid tenosynovitis [de Quervain]; R12 Heartburn

== ENCOUNTER 2025-06-19 09:32 | Outpatient (AMB) | payer OTHER, SELFPAY ==
[2025-06-19 09:34] VITALS: BMI 26.3
--- NOTE | 2025-06-19 09:34 | MHC.OFFVIS ---
Vital Signs 06/19/25 09:34 Height 5 ft 7 in Weight 168 lb BMI 26.3 Intake Visit Reasons: PO - Rt RETIREMENT Release 06/03/25 Intake Note: Regina is a 55 year old right hand dominant female who presents today for a Post-operative visit status post Right First Dorsal Compartment Release, DOS: 06/03/25 by Jennifer. Patient reports some soreness and tightness around incision site, otherwise patient denies any further concerns. She denies numbness or tingling. She has discontinued pain medications. Sutures removed in office and steri strips applied. Allergies clarithromycin (Biaxin) Allergy (Intermediate, Verified 06/17/25 14:07) Hives paroxetine (From Paxil) Allergy (Intermediate, Verified 06/17/25 14:07) Rash omeprazole Adverse Reaction (Mild, Verified 06/17/25 14:07) malaise HPI HPI PO - Rt RETIREMENT Release 06/03/25: Details: Regina is a 55 year old right hand dominant female who presents today for a Post-operative visit status post Right First Dorsal Compartment Release, DOS: 06/03/25 by Jennifer. Patient reports some soreness and tightness around incision site, otherwise patient denies any further concerns. She reports numbness or tingling around the incision site. She has discontinued pain medications. Sutures removed in office and steri strips applied. [facility] Medical History Cesar neuroma De Quervain's tenosynovitis Depression Lower back pain GORAN (generalized anxiety disorder) Family History Brother Family hx of prostate cancer Alcoholism Mother HTN (hypertension) Hypothyroidism Father Bladder cancer Brother Alcoholism Sister Alcoholism Social History (Updated 06/19/25 @ 09:41 by MARITZA Hernandez) Housing: Condominium Comment: counts correct Patient Tobacco Use Status: Never used Tobacco e-Cigarette/Vaping Use: Never Used service: No Current occupational status: retired Current occupation: rt handed Current occupational exposures/hazards: No Cognitive needs: No Hearing needs: No Vision needs: No Review of Systems Const All systems reviewed & are unremarkable except as noted in HPI and below Physical Exam Vital Signs: BMI result Body Mass Index 26.3 Extrem Other: Patient is alert, oriented, and in no acute distress. Neuro: Normal sensation of the tips of all digits of the right hand at this time Mild numbness surrounding incision over right 1st dorsal compartment Vascular: Cap refill brisk Pain: Minimal tenderness to palpation around incision site over right 1st dorsal compartment No pain with range of motion of right hand ROM: Patient is able to make a closed fist and extend all digits of the right hand fully Skin: No lacerations or abrasions. General: No ecchymosis, erythema, or evidence of infection. Psych: Appears grossly normal Affect normal Attitude cooperative Assessment & Plan Assessment & Plan (1) De Quervain's tenosynovitis: Code(s): M65.4 - Radial styloid tenosynovitis [de Quervain] Category: Medical Plan 1. Status post right 1st dorsal compartment release DOS 06/03/2025 Patient appears to be recovering well postoperatively Patient is educated about the typical recovery course Sutures removed, Steri-Strips applied without issue No under water times one-week, 2 lb weight limit x2 weeks OT referral placed for range of motion and gentle strengthening of the right wrist status post right 1st dorsal compartment release Patient is provided with comfort cool brace to be worn with daytime activities and when her wrist is particularly bothering her Patient understands this is amenable to this plan Follow-up in 4 weeks for reassessment, sooner with any acute concerns Orders: Orders OT Evaluation and Treatment Today M65.4 - Radial styloid tenosynovitis [de Quervain] Coding Level of Care Code Global (30340) Diagnoses De Quervain's tenosynovitis M65.4
--- OUTSIDE RECORDS SUMMARY | 2025-06-19 10:59 | XMS_ITS | Patient Health Record ---
Author Organization [facility] Address [address] [place] [address] Care Team Providers Care Learning Disabilities Teacher Name Role Phone [facility] Primary Care Provider Unavailable Amilcar Booth Unavailable [phone] Allergies No Known Allergies Reason For Referral [...] Notes Problem Spinal stenosis in cervical region (80024341) Spinal stenosis, cervical region (M48.02) Active confirmed Problem Lumbar radiculopathy (250287593) Radiculopathy, lumbar region (M54.16) Active confirmed Problem Acute pain of right knee (M25.561) Active confirmed Problem Carpal tunnel syndrome of left wrist (852104277074768) Carpal tunnel syndrome of left wrist (G56.02) Active confirmed Problem Radial styloid tenosynovitis (77865687) 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) Active confirmed Problem Other tear of medial meniscus of right knee as current injury, initial encounter (S83.241A) Active confirmed Problem Entrapment of right ulnar nerve (908735718092162) Entrapment of right ulnar nerve (G56.21) Active confirmed Plan Of Treatment Pending Test Test Name Order Date DAVEY- C-spine Interlaminar CPT 60094 02/27 MRI LUMBAR SPINE WO CONTRAST 03/25/2021 Physical Therapy 1-2x a week x 6 weeks 0 12/16/2021 Insurance Providers Payer Name Payer Address Payer Phone Subscriber Number Group Number Insured Name Patient Relationship to Insured Coverage Start Date Coverage End Date [place] [employer] [place] [address] [place] [address] [id number] Regina Khan Self - patient is the insured Medical (General) History Medical History History ICD Code PTSD depression anxiety Panic attacks mood disorder fibromyalgia degenerative disc disease back pain neck pain sciatica asthma hashimotos thyroiditis Arthritis carpal tunnel Surgical History Surgery Date(Month/Year) none Hospitalization History Reason Date(Month/Year) none
--- OUTSIDE RECORDS SUMMARY | 2025-06-19 10:59 | XMS_ITS | Clinical Summary ---
Author Organization [facility] Address [address] [place] [address] Care Team Providers Care Neurological Surgery Teacher Name Role Phone Gary Das MD Primary Care Provider [phone] Surgical History Surgery Date Site/Laterality Comments ESOPHAGOGASTRODUODENOSCOPY 02/18/09 PROCEDURE: [place] EGD TRANSORAL BIOPSY SINGLE/MULTIPLE; COMMENT: Nl esophagus-biopsy:normal, Antral gastritis and 2 small polyps-biopsy:reactive gastropathy and intestinal metaplasia. Nl sb-biopsy:Nl OTHER SURGICAL HISTORY 12/14/2016 PROCEDURE: [place] EXC BRANCHIAL CLEFT CYST CONFINED SKN&SUBQ TIS; COMMENT: Dr. Kiersten Angela; left neck inclusion cyst 0.6 cm EYE SURGERY PROCEDURE: HISTORICAL EYE SURGERY; COMMENT: lasik bilaterally, left lattis surgery OTHER SURGICAL HISTORY PROCEDURE: [place] RADIAL KERATOTOMY; COMMENT: left eye Medical History [...] Recently Relevant to Health Maintenance Care Teams Neurological Surgery Teacher Relationship Specialty Start Date End Date Gary Das MD [address] [place] [address] PCP - General Internal Medicine 07/02/11
--- OUTSIDE RECORDS SUMMARY | 2025-06-19 10:59 | XMS_ITS | Clinical Summary ---
Author Organization [facility] Address [address] [place] [address] Care Team Providers Care School Cafeteria Cook Head Name Role Phone Unavailable Primary Care Provider [...] 1 tablet by mouth daily. 0 Active Albert-3 Fatty Acids (FISH OIL PO) Take 1,600 [...]
== END 2025-06-19 09:51 | disposition home or self-care (01) ==
LOC: HO.HOS 09:32
DX: M65.4 Radial styloid tenosynovitis [de Quervain] (principal)
CPT/HCPCS: 99024

== ENCOUNTER 2025-07-17 09:44 | Outpatient (AMB) | payer OTHER, SELFPAY ==
[2025-07-17 10:00] VITALS: BMI 26.3
--- NOTE | 2025-07-17 10:00 | A.OFFVIS_ITS ---
Vital Signs 07/17/25 10:00 Height 5 ft 7 in Weight 168 lb BMI 26.3 Intake Visit Reasons: PO - Rt [facility] Release 06/03/25 Intake Note: Regina is a 55 year old right hand dominant female who presents today for a Post-operative visit status post Right First Dorsal Compartment Release, DOS: 06/03/25 by Jennifer. At her last visit, she was advised to avoid underwater activities for 1 more week and to remain at a 2 lb weight limit for 3 more weeks. A referral to Occupational Therapy was placed for gentle ROM. She was provided with a Comfort Cool brace to wear with daytime activities and when her wrist is particularly bothering her. Today, patient reports she is still having some numbness around the incision. Allergies clarithromycin (Biaxin) Allergy (Intermediate, Verified 07/17/25 10:01) Hives paroxetine (From Paxil) Allergy (Intermediate, Verified 07/17/25 10:01) Rash omeprazole Adverse Reaction (Mild, Verified 07/17/25 10:01) malaise HPI HPI PO - Rt [facility] Release 06/03/25: Details: Regina is a 55 year old right hand dominant female who presents today for a Post-operative visit status post Right First Dorsal Compartment Release, DOS: 06/03/25 by Jennifer. At her last visit, she was advised to avoid underwater activities for 1 more week and to remain at a 2 lb weight limit for 3 more weeks. A referral to Occupational Therapy was placed for gentle ROM. She was provided with a Comfort Cool brace to wear with daytime activities and when her wrist is particularly bothering her. Today, patient reports she is still having some numbness around the incision. Patient also reports some mild discomfort around the incision site, but reports that her pain has improved significantly. [facility] Medical History Cesar neuroma De Quervain's tenosynovitis Depression Lower back pain GORAN (generalized anxiety disorder) Family History Brother Family hx of prostate cancer Alcoholism Mother HTN (hypertension) Hypothyroidism Father Bladder cancer Brother Alcoholism Sister Alcoholism Social History (Updated 06/19/25 @ 09:41 by Dalymar Sanders, RMA) Housing: Condominium Comment: counts correct Patient Tobacco Use Status: Never used Tobacco e-Cigarette/Vaping Use: Never Used service: No Current occupational status: retired Current occupation: rt handed Current occupational exposures/hazards: No Cognitive needs: No Hearing needs: No Vision needs: No Review of Systems Const All systems reviewed & are unremarkable except as noted in HPI and below Physical Exam Vital Signs: BMI result Body Mass Index 26.3 Extrem Other: Patient is alert, oriented, and in no acute distress. Neuro: Normal sensation of the tips of all digits of the right hand at this time Mild numbness surrounding incision over right 1st dorsal compartment Vascular: Cap refill brisk Pain: No tenderness to palpation around incision site over right 1st dorsal compartment No pain with range of motion of right hand Negative Ria on the right ROM: Patient is able to make a closed fist and extend all digits of the right hand fully Skin: No lacerations or abrasions. General: No ecchymosis, erythema, or evidence of infection. Psych: Appears grossly normal Affect normal Attitude cooperative Assessment & Plan Assessment & Plan (1) De Quervain's tenosynovitis: Code(s): M65.4 - Radial styloid tenosynovitis [de Quervain] Category: Medical Plan 1. Status post right 1st dorsal compartment release DOS 06/03/2025 Patient appears to be recovering well postoperatively Patient is educated about the typical recovery course Sutures removed, Steri-Strips applied without issue No under water times one-week, 2 lb weight limit x2 weeks Patient is educated that she should attend OT to encourage further healing and to help with potential hypersensitivity Patient understands this and is amenable to this plan Follow-up as needed Coding Level of Care Code Global (73943) Diagnoses De Quervain's tenosynovitis M65.4
--- OUTSIDE RECORDS SUMMARY | 2025-07-17 18:00 | XMS_ITS | Clinical Summary ---
Author Organization [facility] Address [address] [place] [address] Care Team Providers Care Combat Systems Operator Mine Warfare Name Role Phone Unavailable Primary Care Provider [...] 1 tablet by mouth daily. 0 Active Prue-3 Fatty Acids (FISH OIL PO) Take 1,600 [...]
--- OUTSIDE RECORDS SUMMARY | 2025-07-17 18:01 | XMS_ITS | Patient Health Record ---
Author Organization [facility] Address [address] [place] [address] Care Team Providers Care Fisheries Enforcement Officer Name Role Phone [facility] Primary Care Provider Unavailable Amilcar Booth Unavailable [phone] Allergies No Known Allergies Reason For Referral [...] Notes Problem Spinal stenosis in cervical region (89110799) Spinal stenosis, cervical region (M48.02) Active confirmed Problem Lumbar radiculopathy (234540958) Radiculopathy, lumbar region (M54.16) Active confirmed Problem Acute pain of right knee (M25.561) Active confirmed Problem Carpal tunnel syndrome of left wrist (057023423690667) Carpal tunnel syndrome of left wrist (G56.02) Active confirmed Problem Radial styloid tenosynovitis (18903772) 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) Active confirmed Problem Other tear of medial meniscus of right knee as current injury, initial encounter (S83.241A) Active confirmed Problem Entrapment of right ulnar nerve (762391639120406) Entrapment of right ulnar nerve (G56.21) Active confirmed Plan Of Treatment Pending Test Test Name Order Date DAVEY- C-spine Interlaminar CPT 36798 02/27 MRI LUMBAR SPINE WO CONTRAST 03/25/2021 Physical Therapy 1-2x a week x 6 weeks 0 12/16/2021 Insurance Providers Payer Name Payer Address Payer Phone Subscriber Number Group Number Insured Name Patient Relationship to Insured Coverage Start Date Coverage End Date ID DEPT OF HEALTH PIN [id number] [place] [phone] [id number] Regina Khan Self - patient is the insured Medical (General) History Medical History History ICD Code PTSD depression anxiety Panic attacks mood disorder fibromyalgia degenerative disc disease back pain neck pain sciatica asthma hashimotos thyroiditis Arthritis carpal tunnel Surgical History Surgery Date(Month/Year) none Hospitalization History Reason Date(Month/Year) none
--- OUTSIDE RECORDS SUMMARY | 2025-07-17 18:01 | XMS_ITS | Clinical Summary ---
Author Organization [facility] Address [address] [place] [address] Care Team Providers Care Service Center Technician Name Role Phone Gary Das MD Primary Care Provider [phone] Surgical History Surgery Date Site/Laterality Comments ESOPHAGOGASTRODUODENOSCOPY 02/18/09 PROCEDURE: [place] EGD TRANSORAL BIOPSY SINGLE/MULTIPLE; COMMENT: Nl esophagus-biopsy:normal, Antral gastritis and 2 small polyps-biopsy:reactive gastropathy and intestinal metaplasia. Nl sb-biopsy:Nl OTHER SURGICAL HISTORY 12/14/2016 PROCEDURE: [place] EXC BRANCHIAL CLEFT CYST CONFINED SKN&SUBQ TIS; COMMENT: Dr. Kiersten Angela; left neck inclusion cyst 0.6 cm EYE SURGERY PROCEDURE: HISTORICAL EYE SURGERY; COMMENT: lasik bilaterally, left lattis surgery OTHER SURGICAL HISTORY PROCEDURE: [place] RADIAL KERATOTOMY; COMMENT: left eye Medical History [...] Depression Screening 08/29/2024 COVID-19 Vaccine (1 - 2024-2 6 season) 2025 Influenza Vaccine (#1) 2025 6, [...] Recently Relevant to Health Maintenance Care Teams Service Center Technician Relationship Specialty Start Date End Date Gary Das MD [address] [place] [address] PCP - General Internal Medicine 07/02/11
== END 2025-07-17 10:06 | disposition home or self-care (01) ==
LOC: HO.HOS 09:45
DX: M65.4 Radial styloid tenosynovitis [de Quervain] (principal)
CPT/HCPCS: 99024